=== PATIENT | male | born 1940 | race Caucasian/White ===

== ENCOUNTER 2016-09-08 17:47 | Inpatient (IN) | payer OTHER, MEDICARE ==
[~2016-09-08] VITALS: Ht 172.7 cm; Wt 95.3 kg
[~2016-09-08 17:47] MED LIST: AMLODIPINE BESYL5 M1 PO; BYSTOLIC10 M1 PO; HYDROXYZINE HCL50 M1 PO; LISINOPRIL40 M1 PO; MEDROL4 M2 PO
--- NOTE | 2016-09-08 18:44 | ED DYSPNEA/ASTHMA COMPLAINT ---
History of Present Illness General Chief Complaint: Dyspnea (COPD, CHF, Other) Stated Complaint: SOB Source: patient, family Exam Limitations: no limitations Vital Signs & Intake/Output Vital Signs & Intake/Output Vital Signs Date Time Temp Pulse Resp B/P Pulse O2 O2 Flow FiO2 Ox Delivery Rate 09/08 2344 97.8 87 20 162/90 93 Room Air 09/08 2244 97.4 70 22 144/70 91 Room Air 09/08 2020 98.2 63 20 140/67 91 Room Air 09/08 2011 93 09/08 1909 91 09/08 1902 Room Air Room Air 09/08 1809 98.2 70 20 165/89 93 Room Air ED Intake and Output 09/09 0000 09/08 1200 Intake Total Output Total Balance Patient 220 lb Weight Allergies Coded Allergies: No Known Drug Allergies (UNKNOWN 04/08/16) Triage Note: RECEIVED 75 YO MALE C/O SHORTNESS OF BREATH AND WHEEZING X 2 WEEKS. FAINT EXP WHEEZES ALL WRAY. PT REPORTS CHEST TIGHTNESS AND RIGHT SIDED CHEST SORENESS. Triage Nurses Notes Reviewed? yes HPI: Patient is a 75-year-old male presents complaining of cough, wheezing, dyspnea. Symptoms 2 weeks. Cough with yellow sputum production. Reports right-sided chest pain and rib pain for approximately one week. Pain is sharp pain worsens with deep breath and coughing. Pain is currently moderate. Patient denies fevers, chills. (MATTHEW PALMA,ADRIANA) Reconcile Medications Amlodipine Besylate 5 MG TABLET 1 TAB PO DAILY HTN (Reported) Atorvastatin Calcium 10 MG TABLET 1 TAB PO DAILY CHOLESTEROL (Reported) Lisinopril 40 MG TABLET 1 TAB PO DAILY HTN (Reported) Nebivolol HCl (Bystolic) 10 MG TABLET 0.5 TAB PO DAILY HTN (Reported) (LEAH VASQUES,ZE [place]) Past History Travel History Traveled to [place] past 21 day No Medical History Any Pertinent Medical History? see below for history Neurological: NONE EENT: NONE Cardiovascular: hypertension, hyperlipidemia Respiratory: NONE Gastrointestinal: NONE Hepatic: NONE Renal: NONE Musculoskeletal: spinal stenosis Psychiatric: NONE Endocrine: NONE Blood Disorders: NONE Cancer(s): BLADDER CA History of MRSA: No History of VRE: No History of CDIFF: No Surgical History Surgical History: non-contributory Psychosocial History Who do you live with Family Services at Home None, NONE What is your primary language Croatian Tobacco Use: Quit >30 days ago Family History Family History, If Any: FATHER FH: leukemia MOTHER FH: diabetes mellitus Hx Contributory? No (ADRIANA PAYNE) Review of Systems Review of Systems Constitutional: Denies: chills, fever. EENTM: Reports: no symptoms. Respiratory: Reports: see HPI. Cardiovascular: Reports: chest pain (RIGHT-SIDED). Denies: orthopena, syncope. GI: Denies: abdominal pain, nausea, vomiting. Genitourinary: Reports: no symptoms. Musculoskeletal: Reports: no symptoms. Skin: Reports: no symptoms. Neurological/Psychological: Reports: no symptoms. Hematologic/Endocrine: Reports: no symptoms. Immunologic/Allergic: Reports: no symptoms. (ADRIANA PAYNE) Physical Exam Physical Exam General Appearance: well developed/nourished, alert, awake, obese Head: atraumatic, normal appearance Eyes: Bilateral: normal appearance, PERRL, EOMI. Ears, Nose, Throat: normal pharynx, normal ENT inspection, hearing grossly normal Neck: normal inspection, supple, full range of motion Respiratory: chest non-tender, no respiratory distress, MILD DIFFUSE EXPIRATORY WHEEZING. Diminished lung sound right lower lobe Cardiovascular: regular rate/rhythm (NO APPRECIABLE MURMUR) Gastrointestinal: soft, non-tender Extremities: 1+ BILATERAL LOWER EXTREMITY EDEMA Neurologic/Psych: no motor/sensory deficits, awake, alert, oriented x 3, normal gait, normal mood/affect Skin: intact, normal color, warm/dry Lymphatic: no anterior cervical dara Core Measures ACS in differential dx? Yes ASA ordered for poss ACS? No-ACS ruled out Severe Sepsis Present: No Septic Shock Present: No (ADRIANA PAYNE) Progress Differential Diagnosis: asthma, AMI, bronchitis, CHF, COPD, pulmonary embolism, pneumonia, unstable angina Plan of Care: Orders Procedure Date/time Status Heart Healthy Diet 09/09 B Active CBC WITHOUT DIFFERENTIAL 09/09 06 Active BASIC ELECTROLYTES PLUS BUN&CR 09/09 06 Active Pathway - chart 09/08 2351 Active Code Status 09/08 2351 Active Patient Data 09/08 2158 Active Intake & Output 09/08 2139 Active Saline Lock 09/08 2113 Active Misc Message 09/08 2113 Active ED Holding Orders 09/08 2113 Active Vital Signs 09/08 2113 Active Code Status 09/08 2113 Complete Admit to inpatient 09/08 2112 Active Add-on Test (ER Only) 09/08 2056 Active B-TYPE NATRIURETIC PEP (BNP) 09/08 190 Complete TROPONIN LEVEL 09/08 1839 Complete COMPREHENSIVE METABOLIC PANEL 09/08 1839 Complete CBC WITHOUT DIFFERENTIAL 09/08 1839 Complete EKG 09/08 1811 Active US-DUPLEX VENOUS EXTREM UNI 09/08 UNK Active TRC EVALUATION (GEN) 09/08 UNK Active House Staff 09/08 UNK Active VTE Mechanical Prophylaxis 09/08 UNK Active Vital Signs 09/08 UNK Active Current Medications Sig/Jordon Start time Last Medication Dose Stop Time Status Admin Amlodipine Besylate 5 MG DAILY 09/09 1000 AC (Norvasc) Atorvastatin Calcium 10 MG DAILY 09/09 1000 AC (Lipitor) Nebivolol 5 MG DAILY 09/09 1000 AC (Bystolic) Prednisone 40 MG DAILY 09/09 1000 AC Heparin Sodium 5,000 UNIT Q8 09/08 2346 AC (Porcine) Acetaminophen 650 MG Q6P PRN 09/08 2345 AC (Tylenol) Morphine Sulfate 2 MG Q4P PRN 09/08 2345 AC (Morphine) Oxycodone HCl 5 MG Q6P PRN 09/08 2345 AC (Roxicodone) Sodium Chloride 1,000 ML ONCE ONE 09/08 2345 AC (Normal Saline 0.9%) 09/09 1304 Laboratory Tests 09/08/161901: Anion Gap 11, Estimated GFR 54 L, BUN/Creatinine Ratio 15.4, Glucose 90, Calcium 9.9, Total Bilirubin 0.7, AST 26, ALT 33, Alkaline Phosphatase 106, Troponin I 0.04, Qtj-I-Cbxsushuxcv Pept 1250 H, Total Protein 7.3, Albumin 4.1, Globulin 3.2, Albumin/Globulin Ratio 1.3, CBC w Diff NO MAN DIFF REQ, RBC 6.08, MCV 85.5, MCH 27.7, RDW 14.6 H, MPV 8.8, Gran % 73.9, Lymphocytes % 15.0 L, Monocytes % 8.0, Eosinophils % 2.6, Basophils % 0.5, Absolute Granulocytes 7.4 H, Absolute Lymphocytes 1.5, Absolute Monocytes 0.8 H, Absolute Eosinophils 0.3 , Absolute Basophils 0.1, PUBS MCHC 32.4 L 1939: Improved air movement and moderate improvement in wheezing. Continues with diminished lung sounds right lower lobe. Results of labs and chest x-ray discussed with patient and his . CT scan ordered 2129: Results of CT scan discussed with patient and his . Patient's oxygen saturation 89-90% on room air at rest while I was re-evaluating patient. Discussed with Dr. Meade. 2134: Patient ambulated by nursing staff, became tachypnic and dyspneic. Plan for admission. 2144: Discussed with Dr. Jefferson: will admit patient. (MATTHEW PALMA,ADRIANA) Diagnostic Imaging: Viewed by Me: Radiology Read. Discussed w/RAD: Radiology Read. CXR Impression: PATIENT: TRISH FANG PRESENT AGE: 75 PATIENT ACCOUNT NO: [id number] : 38 LOCATION: [facility] ORDERING PHYSICIAN: ADRIANA PALMA SERVICE DATE: 09/08/16 EXAM TYPE: RAD - XRY-CHEST XRAY, PA AND LATERAL EXAMINATION: XR CHEST CLINICAL INFORMATION: Cough and sputum production. Right-sided rib pain. COMPARISON: CT abdomen and pelvis 10/09/2013. Chest x-ray 04/16/2013. TECHNIQUE: 2 views of the chest were obtained. FINDINGS: PA and lateral views of the chest demonstrate right basilar opacification with associated right-sided volume loss and elevation of the right hemidiaphragm. This finding may be secondary to underlying right lower lobe collapse secondary to an endobronchial or extrabronchial obstructing lesion. The left lung is hypoinflated but otherwise clear. No pleural effusions or pneumothoraces. Cardiac mediastinal contours are partially obscured. IMPRESSION: Right basilar opacification with associated right lung volume loss and elevation of the right hemidiaphragm. This finding is indeterminate but could reflect right lower lobe collapse secondary to an endobronchial or extrabronchial obstructing lesion. Recommend correlation with contrast-enhanced chest CT. DICTATED BY: PAUL YODER MD DATE/TIME DICTATED:09/08/161911 TELETYPE INSTALLER:MARCE DATE/TIME TRANSCRIBED:09/08/161911 CONFIDENTIAL, DO NOT COPY WITHOUT APPROPRIATE AUTHORIZATION. <Electronically signed in Other Vendor System> SIGNED BY: PAUL YODER MD 09/08/161941 Initial ED EKG: sinus rhythm 61 bpm incomplete right bundle branch block, poor baseline, no obvious acute ST/T-wave changes compared to previous EKG Prior EKG: unchanged (ADRIANA PAYNE) Departure Departure Time of Disposition: 2136 Disposition: HOME OR SELF CARE Condition: Stable Clinical Impression Primary Impression: Pleural effusion Referrals: YUMIKO TAYLOR DO (PCP/Family) Departure Forms: Customer Survey General Discharge Information Admission Note Spoke With: KERI VASQUES,FRANCISCO J Documentation of Exam: Documentation of any treatments & extenuating circumstances including Concerns Regarding Discharge (functional status, medication knowledge or non-compliance, living conditions, etc.) that warrant an admission rather than observation: supplemental oxygen, pulmonary consultation, IR thoracentesis and send pleural fluid for analysis to help determine etiology. Patient's oxygen saturation has dropped to 89% on room air at rest, patient has tachypnea and dyspnea with exertion. Does not appear safe for discharge. (ADRIANA PAYNE) PA/DRUM PLATER Co-Sign Statement Statement: ED Attending supervision documentation- [] I saw and evaluated the patient. I have also reviewed all the pertinent lab results and diagnostic results. I agree with the findings and the plan of care as documented in the PA's/DRUM PLATER's documentation. [X] I have reviewed the ED Record and agree with the PA's/DRUM PLATER's documentation. [] Additions or exceptions (if any) to the PAs/DRUM PLATER's note and plan are summarized below: [] (LEAH VASQUES,ZE [place]) Critical Care Note Critical Care Note Critical Care Time: non-applicable (ADRIANA PAYNE)
[2016-09-08] MEDS ORDERED: ATORVASTATIN CA10 M1 PO (19:04)
[2016-09-08 19:16] LABS: ABSOLUTE BASOPHIL COUNT 0.1 /CUMM (0.0-0.2); ABSOLUTE EOSINOPHIL COUNT 0.3 /CUMM (0.0-0.7); ABSOLUTE GRANULOCYTE CT 7.4 /CUMM (1.4-6.5); ABSOLUTE LYMPH COUNT 1.5 /CUMM (1.2-3.4); ABSOLUTE MONOCYTE COUNT 0.8 /CUMM (0.10-0.60); BASOPHIL % 0.5 % (0.0-2.0); EOSINOPHIL % 2.6 % (0-5); GRANULOCYTE % 73.9 % (42.2-75.2); MEAN CORPUSCULAR HGB 27.7 PG (27.0-31.0); MEAN CORPUSCULAR HGB CONC 32.4 G/DL (33.0-37.0); MEAN CORPUSCULAR VOLUME 85.5 FL (80.0-94.0); MEAN PLATELET VOLUME 8.8 FL (7.4-10.4); PLATELET COUNT 304 /CUMM (130-400); RBC DISTRIBUTION WIDTH 14.6 % (11.5-14.5); RED BLOOD CELL CT 6.08 /CUMM (4.70-6.10)
--- NOTE | 2016-09-08 19:42 | RADIOLOGY REPORT ---
EXAMINATION: XR CHEST CLINICAL INFORMATION: Cough and sputum production. Right-sided rib pain. COMPARISON: CT abdomen and pelvis 10/09/2013. Chest x-ray 04/16/2013. TECHNIQUE: 2 views of the chest were obtained. FINDINGS: PA and lateral views of the chest demonstrate right basilar opacification with associated right-sided volume loss and elevation of the right hemidiaphragm. This finding may be secondary to underlying right lower lobe collapse secondary to an endobronchial or extrabronchial obstructing lesion. The left lung is hypoinflated but otherwise clear. No pleural effusions or pneumothoraces. Cardiac mediastinal contours are partially obscured. IMPRESSION: Right basilar opacification with associated right lung volume loss and elevation of the right hemidiaphragm. This finding is indeterminate but could reflect right lower lobe collapse secondary to an endobronchial or extrabronchial obstructing lesion. Recommend correlation with contrast-enhanced chest CT.
--- NOTE | 2016-09-08 21:25 | CT SCAN REPORT ---
EXAMINATION: CT CHEST WITH CONTRAST CLINICAL INFORMATION: Abnormal findings within the right lung base on recent chest x-ray. COMPARISON: Chest x-ray 09/08/2016. TECHNIQUE: Multidetector volumetric CT imaging of the chest was obtained after the administration of 94 mL of Optiray 320 intravenous contrast without immediate adverse reactions. Axial MIP volume rendering provided. Sagittal and coronal reformatted images were obtained. DLP: 626 mGy-cm. FINDINGS: BRANCH LENDING OFFICER: Shop Repairer views of the chest demonstrate right basilar opacification. LUNGS: Evaluation of the bilateral lungs is notable for right basilar compressive atelectasis secondary to a moderate right-sided pleural effusion. Within the aerated portions of the bilateral lungs, there are no suspicious pulmonary nodules or masses. The central airways are patent, without endobronchial obstructing lesions. MEDIASTINUM: Normal heart size, without significant pericardial effusion. Bovine configuration of the aortic arch, characterized by common origin of the brachiocephalic and left common carotid arteries. No significant mediastinal, hilar or axillary adenopathy. Scattered atherosclerosis of the thoracic aorta and scattered coronary artery calcifications. Normal caliber of the thoracic aorta and main pulmonary artery. No large central pulmonary emboli. PLEURA: Bilateral pleural effusions. Specifically, there is a moderate layering right-sided pleural effusion with overlying right basilar compressive atelectasis. There is a small left-sided pleural effusion. No pneumothoraces are identified. AXILLA: No significant axillary adenopathy. UPPER ABDOMEN: Partially visualized simple perihepatic ascites. Suspected parapelvic cysts within the right kidney. Mildly prominent lymph nodes within the tala hepatis visualized measuring up to 1.2 cm in short axis dimension within the portacaval region. OSSEOUS STRUCTURES: No acute osseous abnormality. Normal alignment of the imaged thoracolumbar spine. IMPRESSION: 1. A moderate layering right-sided pleural effusion with overlying right basilar compressive atelectasis, accounting for the recently noted abnormalities within the right lung base on a similarly dated chest x-ray. No appreciable heterogeneity of the atelectatic lung parenchyma to suggest infection. No visible endobronchial or extrabronchial obstructing lesions. No suspicious pulmonary masses within the aerated portions of the bilateral lungs. However, please note that evaluation for underlying parenchymal and pleural lesions within the bilateral lung bases is limited given bilateral pleural effusions. 2. Small left-sided pleural effusion. 3. Partially visualized small volume perihepatic ascites. Suspected parapelvic cysts within the right kidney.
--- NOTE | 2016-09-08 22:59 | History & Physical ---
BARBARA MIRANDA MDAVI 09/08/16 2118: General Information and HPI MD Statement: I have seen and personally examined TRISH FANG and documented this H&P. The patient is a 75 year old M who presented with a patient stated chief complaint of [wheezing, shortness of breath]. 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 He also reprots cough with yellowgreen sputum production for the past few days. He also reports right sided chest soreness. He had some weight loss during the past few months, anorexic. He also reports a recurrence of bladder cancer few months ago requiring intravesicular mitomycin treatment, last session 2mon ago. He denies any fever, chills, sick contacts, recent travel, nausea, vomiting, burning urination/hematuria recently. Allergies/Medications Allergies: Coded Allergies: No Known Drug Allergies (UNKNOWN 04/08/16) Home Med list Amlodipine Besylate 5 MG TABLET 1 TAB PO DAILY HTN (Reported) Atorvastatin Calcium 10 MG TABLET 1 TAB PO DAILY CHOLESTEROL (Reported) Lisinopril 40 MG TABLET 1 TAB PO DAILY HTN (Reported) Nebivolol HCl (Bystolic) 10 MG TABLET 0.5 TAB PO DAILY HTN (Reported) Compliance With Home Meds: GOOD Past History Travel History Traveled to [place] past 21 day No Medical History Neurological: NONE EENT: NONE Cardiovascular: hypertension, hyperlipidemia Respiratory: NONE Gastrointestinal: NONE Hepatic: NONE Renal: NONE Musculoskeletal: spinal stenosis Psychiatric: NONE Endocrine: NONE Blood Disorders: NONE Cancer(s): BLADDER CA, schwannoma History of MRSA: No History of VRE: No History of CDIFF: No Surgical History Surgical History: Schwannoma removal - surgery twice Past Family/Social History Family History Relations & Conditions if any FATHER FH: leukemia MOTHER FH: diabetes mellitus Relation not specified for: FH: heart disease Psychosocial History Where do you live? Home Who Do You Live With? spouse Services at Home: None, NONE Smoking Status: Former Smoker ETOH Use: denies use Illicit Drug Use: denies illicit drug use Functional Ability ADLs Independent: dressing, eating, toileting, bathing. Ambulation: independent IADLs Independent: shopping, housework, finances, food prep, telephone, transportation , medication admin. 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 Denies: chills, fever. EENTM: Reports: see HPI, visual changes, hearing changes. Cardiovascular: Reports: see HPI, chest pain, peripheral edema. Respiratory: Reports: see HPI. Exam & Diagnostic Data Last 24 Hrs of Vital Signs/I&O Vital Signs Date Time Temp Pulse Resp B/P Pulse O2 O2 Flow FiO2 Ox Delivery Rate 09/08 2344 97.8 87 20 162/90 93 Room Air 09/08 2244 97.4 70 22 144/70 91 Room Air 09/08 2020 98.2 63 20 140/67 91 Room Air 09/08 2011 93 09/08 1909 91 09/08 190 Room Air Room Air 09/08 1809 98.2 70 20 165/89 93 Room Air Intake & Output 09/09 0800 09/09 0000 09/08 1600 Intake Total Output Total Balance Patient 99.79 kg Weight Physical Exam General Appearance Alert, Oriented X3, Cooperative, No Acute Distress Skin No Rashes, No Breakdown HEENT Atraumatic, PERRLA, EOMI, drooping present on right side, after a surgery. 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 ER Vital Signs Temp 98.2, pulse of 70, BP 140/67mmHg, on room air Significant labs include Potassium of 5.2, Cr 1.3 white count of 10, H&H of 16/52 with platelet of [address] IMPRESSION: 1. A moderate layering right-sided pleural effusion with overlying right basilar compressive atelectasis, accounting for the recently noted abnormalities within the right lung base on a similarly dated chest x-ray. No appreciable heterogeneity of the atelectatic lung parenchyma to suggest infection. No visible endobronchial or extrabronchial obstructing lesions. No suspicious pulmonary masses within the aerated portions of the bilateral lungs. However, please note that evaluation for underlying parenchymal and pleural lesions within the bilateral lung bases is limited given bilateral pleural effusions. 2. Small left-sided pleural effusion. 3. Partially visualized small volume perihepatic ascites. Suspected parapelvic cysts within the right kidney. Plan Right sided pleural effusion * Secondary to acute bronchitis vs metastatic carcinoma * F/U cultures (sputum, blood, urine). * Started on Azithromycin IV X 5days, prednisone oral for bronchitis. * Diagnostic and therapeutic thoracocentesis tomorrow morning keeping NPO tonight. * TRC/Nebs Right sided pedal edema * Has been chronic from few years after an ankle injury * Doppler ultrasound requested to rule out DVT History of hypertension * Continue his home medications including Amlodipine 5mg, Lisinopril 40mg, Bystolic 10mg. History of hyperlipidemia * On atorvastatin 10mg at home, we will continue that Chronic kidney disease * Creatinine 1.3 (baseline) with potassium of 5.2 * Underwent CT with IV contrast today * Fluids to prevent prerenal injury, holding lisinopril * Monitor with BEP daily History of bladder cancer * Patient is undergoing intravesicular chemotherapy with mitomycin * Last session was 2 months ago for recurrence (mitomycin) and he was informed that he was free from cancer * Follows History of shwannoma with residual defects S/P surgery * Patient underwent surgery twice as it was a large tumor * Residual deficits evident with right sided facial droop, right ear deafness, right vision problems * Currently stable DVT prophylaxis * SC heparin Code Status * Full Code As Ranked By This Provider Problem List: 1. Abdominal pain 2. DVT prophylaxis 3. Bladder cancer 4. Hypertension 5. Hyperlipidemia 6. Pleural effusion Core Measures/Miscellaneous Acute Coronary Syndrome ACS Diagnosis: No Cerebrovascular Accident CVA/TIA Diagnosis: No Congestive Heart Failure CHF Diagnosis: No Venous Thromboembolism VTE Risk Factors: Cancer/chemo/oth therapy VTE Prophylaxis Ordered Inpt: Pharm- Heparin No Mech VTE prophylaxis d/t: No contraindications No VTE Pharm Prophylaxis d/t: No contraindications VTE Diagnosis: No VTE Type: NONE VTE Confirmed by (Test): NONE Severe Sepsis Severe Sepsis Present: No Septic Shock Septic Shock Present: No Miscellaneous Documentation Attending Case Discussed With: FRANCISCO J SAAVEDRA MD Primary Care Physician: YUMIKO TAYLOR DO Patient sees these Specialists , Level of Patient Care: General Medicine BERNIE MARTÍNEZ MD 09/08/16 0057: Resident Review Statement Resident Statement: examined this patient, discussed with undergraduate internship, agreed with undergraduate internship, reviewed EMR data (avail), reviewed images, amended to note Other Findings: This is 75-year-old male with past medical history of hypertension, HLD, stage III CKD, nephrolithiasis, bladder tumor status post resection and intravesical chemotherapy treatment currently in remission for past 2 months, remote history of brain tumor (schwannoma) status post surgical removal with residual right- sided facial droop and right eyelid droop presented to ED with chief complaint of 2 weeks history of progressively worsening shortness of breath associated with productive greenish yellowish sputum and wheezing. He denies any sick contacts, recent travel, nausea, vomiting, abdominal pain, chest pain or urinary symptoms. Vitals on admission were T 98.2, HR 70, RR 20, BP 165/89, O2 sat 93% on room air which dropped to 89% on ambulation. On physical exam patient is alert oriented 3 in no acute distress, HEENT PERRLA EOMI, neck supple noted will right eyelid droop and right-sided facial droop, heart S1-S2 normal with grade 3 systolic murmur, lungs clear on auscultation with poor air entry in right basis with dullness on percussion, abdomen distended soft nontender with preserved bowel sounds, noted significant 2+ pitting pedal edema of right lower extremity, no focal gross neuro deficit. Labs revealed WBC of 10,000, H&H 16.8/52, sodium 146, K5.2, BUN 20, creatinine 1.3 (baseline creatinine 1.3), normal LFT, so 0.04, BNP 1250 , CT chest with IV contrast revealed moderate right-sided pleural effusion with overlying right basilar compressive atelectasis, small left pleural effusion and partially visualized small in volume perihepatic ascites and also in noted suspected parapelvic cyst within the right kidney. EKG revealed normal sinus rhythm at rate of 61, left axis, nonspecific ST elevation in lead V2, QTC 431 Assessment:: This is 75-year-old male with past medical history of hypertension, HLD, stage III C daily, nephrolithiasis, bladder tumor status post resection and intravesical chemotherapy, brain tumor presented with 2 weeks history of progressively worsening shortness of breath associated with productive cough and wheezing likely have acute bronchitis/ COPD exacerbation. 1. Acute bronchitis with component of COPD exacerbation - Admit to general medicine floor - Send sputum for culture and urine for strep and legionella antigen - Continue rapid steroid taper - Start IV azithromycin - TRC - Bilateral lower extremity Doppler in a.m. to rule out DVT - If high suspicion of PE consider CTA chest in a.m. 2. Moderate right-sided pleural effusion - ? Malignant considering the history of recurrent bladder cancer - Consider right thoracentesis - Please keep patient off anticoagulation for possible plying IR guided thoracentesis - Pulmonary consult in am 2. Hypertension Continue home dose antihypertensive medication including nabumetone old, lisinopril and amlodipine 3. Hyperlipidemia Continue statin 4. Stage III Ckd - Patient received IV contrast in ER - Avoid nephrotoxic agent - held lisinopril as patient received iv contrast for CT scan, if kidney function stable resume it - Recheck renal function in a.m. 5. Right lower extremity swelling - Rule out DVT with lower extremity Doppler in a.m. 6. History of bladder cancer status post resection and intravesical chemotherapy - As per patient currently in remission - outpt urology follow with Dr. Aguayo 6. DVT prophylaxis Mechanical due to possible thoracentesis 7. Full code KERI VASQUES, [facility] 09/09/16 0518: Attending MD Review Statement Attending Statement Attending MD Statement: examined this patient, discuss w/resident/PA/PRODUCTION ASSEMBLY OPERATOR, agreed w/resident/PA/PRODUCTION ASSEMBLY OPERATOR Attending Assessment/Plan: [id number] yo M with h/o bladder cancer s/p resection in 2011 with recurrence requiring TURBT and chemo (2015), HTN, BPH, nephrolithiasis, CKD stage 3A, schwannoma s/p resection (1990) with residual facial droop, pw 2-week h/o exertional dyspnea, wheezing and cough productive of yellow phlegm. No sick contacts, recived flu shot. Pleuritic right sided chest pain+. While in the ER, O2 sats were 89-90% at rest. On ambulation, patient became tachypneic. Vitals stable except for RA sats ~ 91-93%. Exam: AAO, no JVD. Chest reduced right sided air entry, few expiratory wheezes, RLE: 2+ pitting edema compared to LLE (1+ edema). Labs: Na 146, K 5.2, Creat 1.3 (baseline), trop neg, proBNP 1250. EKG: SR, RBBB. CXR: right basilar opacification with volume loss. CT chest : moderate right pleural effusion with right basilar atelectasis. 1. Hypoxia in the setting of right sided pleural effusion of unclear etiology ( pneumonia vs. CHF vs. Lung metastasis). No evidence of florid pulmonary edema. Patient needs IR guided diagnostic and therapeutic thoracentesis in AM. Send fluid for culture, cytology and cell count. Pulm consult in AM. Check INR in AM, prior to procedure. 2. Bronchitis with possible COPD exacerbation. TRC nebs, sputum culture, rapid steroid taper, azithro for 5 days. 3. RLE edema, rule out DVT with dopplers in AM. 4. CKD at baseline. Hold lisinopril in AM, given patient received IV contrast, monitor BUN/creatinine. 5. Continue home meds including amlodipine, statin and bystolic. DVT ppx Alps, initiate SC heparin post thoracentesis. Full code.
[2016-09-08 23:44] VITALS: BP 162/90
--- NOTE | 2016-09-09 04:44 | Admission Certification ---
Admission Certification Certification Statement - As attending physician, I certify that at the time of - admission, based on clinical presentation, severity of - symptoms, need for further diagnostic testing and - therapeutic interventions, and risk of adverse outcomes - without in-hospital treatment, in my clinical assessment, - this patient requires an acute hospital stay for a minimum - of two nights or longer. I have also considered psychsocial - factors such as support system, advanced age, financial - issues, cognitive issues, and failed out-patient treatments, - past re-admission history, safety of patient, and lack of - compliance as applicable. Specific rationale supporting this admission is: Hypoxia, exertional dyspnea, right sided pleural effusion of unclear etiology.
[2016-09-09 06:00] VITALS: BP 146/78
--- NOTE | 2016-09-09 07:29 | PN- Housestaff ---
GIANNIBAKARI 09/09/16 0728: Subjective Follow-up For: - pleural effusion - shortness of breath Subjective: Mr Tapia is comfortable this am. No compalints. He was sitting in his chair when I walked into his room this am. Oxygen saturation was in the range of 95-96 % on RA. Remained afebrile overnight. No shortness of breath, no chest pain, no palpitations. Review of Systems Constitutional: Reports: see HPI. Objective Last 24 Hrs of Vital Signs/I&O Vital Signs Date Time Temp Pulse Resp B/P Pulse O2 O2 Flow FiO2 Ox Delivery Rate 09/09 0600 97.7 67 20 146/78 67 Room Air 09/08 2344 97.8 87 20 162/90 93 Room Air 09/08 2244 97.4 70 22 144/70 91 Room Air 09/08 2021 98.2 63 20 140/67 91 Room Air 09/08 2011 93 09/08 1909 91 09/08 1902 Room Air Room Air 09/08 1809 98.2 70 20 165/89 93 Room Air Intake & Output 09/09 0800 09/09 0000 09/08 1600 Intake Total 130 Output Total 250 Balance -120 Intake, IV 10 Intake, Oral 120 Output, Urine 250 Patient 210 lb Weight Physical Exam General Appearance: No Acute Distress Other Physical Findings: General Exam: AAOx3, No acute distress, Skin: No rashes, no breakdown HEENT: PERRLA, EOMI Neck: Supple, No JVD No cervical lymphadenopathy CVS: Reg Rate, Normal S1,S2, No MGR Resp: Low air entry on right side, no rhonchi or rales. Abdomen: Soft, No tenderness, Normal Bowel Sounds Neuro: Normal Speech, Strength 5/5 b/l x 4 extremities, Sensation intact, Facial droop right side, Reflexes 2+ Extremities: No cyanosis, pedal edema Current Medications: Current Medications Sig/Jordon Start time Last Medication Dose Route Stop Time Status Admin Acetaminophen 650 MG Q6P PRN 09/08 2345 AC PO Albuterol Sulfate 3 ML ONCE ONE 09/08 1999 DC 09/08 INH 09/08 Albuterol Sulfate 3 ML ONCE ONE 09/08 1845 DC 09/08 INH 09/08 184 1909 Amlodipine Besylate 5 MG DAILY 09/09 1000 AC PO Atorvastatin Calcium 10 MG DAILY 09/09 1000 AC PO Azithromycin 500 MG DAILY 09/09 1000 AC Dextrose/Water 250 ML IV Heparin Sodium 5,000 UNIT Q8 09/08 2346 DC 09/09 (Porcine) SC 0016 Ipratropium [place] 2.5 ML ONCE ONE 09/08 1845 DC 09/08 INH 09/08 184 1909 Morphine Sulfate 2 MG Q4P PRN 09/08 2345 AC IV Nebivolol 5 MG DAILY 09/09 1000 AC PO Oxycodone HCl 5 MG Q6P PRN 09/08 2345 AC PO Prednisone 10 MG DAILY 09/12 1000 AC PO 09/12 1001 Prednisone 20 MG DAILY 09/11 1000 AC PO 09/11 1001 Prednisone 30 MG DAILY 09/10 1000 AC PO 09/10 1001 Prednisone 40 MG DAILY 09/09 1000 DC PO Prednisone 40 MG DAILY 09/09 1000 CAN PO 09/13 0959 Prednisone 20 MG DAILY 09/09 1000 DC PO 09/09 1001 Prednisone 40 MG DAILY 09/09 1000 AC PO 09/09 1001 Prednisone 60 MG ONCE ONE 09/08 1844 DC 09/08 PO 09/08 184 1846 Prednisone 0 .STK-MED ONE 09/08 184 DC PO Sodium Chloride 1,000 ML ONCE ONE 09/08 2345 DC 09/09 IV 09/09 1304 0017 Last 24 Hrs of Lab/Bebeto Results Last 24 Hrs of Labs/Mics: Laboratory Tests 09/09/16 0635: Sodium Pending, Potassium Pending, Chloride Pending, Carbon Dioxide Pending, Anion Gap Pending, BUN Pending, Creatinine Pending, BUN/Creatinine Ratio Pending , PT Pending, INR Pending, CBC w Diff Pending, WBC Pending, RBC Pending, Hgb Pending, Hct Pending, MCV Pending, MCH Pending, RDW Pending, Plt Count Pending, MPV Pending, PUBS MCHC Pending 09/09/16 0140: Troponin I 0.03 09/08/161901: Anion Gap 11, Estimated GFR 54 L, BUN/Creatinine Ratio 15.4, Glucose 90, Calcium 9.9, Total Bilirubin 0.7, AST 26, ALT 33, Alkaline Phosphatase 106, Troponin I 0.04, Mtw-D-Ihbxtoyqeuc Pept 1250 H, Total Protein 7.3, Albumin 4.1, Globulin 3.2, Albumin/Globulin Ratio 1.3, CBC w Diff NO MAN DIFF REQ, RBC 6.08, MCV 85.5, MCH 27.7, RDW 14.6 H, MPV 8.8, Gran % 73.9, Lymphocytes % 15.0 L, Monocytes % 8.0, Eosinophils % 2.6, Basophils % 0.5, Absolute Granulocytes 7.4 H, Absolute Lymphocytes 1.5, Absolute Monocytes 0.8 H, Absolute Eosinophils 0.3 , Absolute Basophils 0.1, PUBS MCHC 32.4 L Microbiology 09/09 529 URINE ROUT: Legionella Antigen - RECD 09/09 529 URINE ROUT: Streptococcus pneumoniae Antigen (M - RECD Assessment/Plan Assessment: He is an older man w/ a PMH of bladder cancer(dx'ed 1990) s/p mitomycin Tx, Schwannoma s/p resection w/ residual neuro deficit, vision and deafness is being evalauted for SOB at rest, cough w/ yellow green sputum x 2 wks. At the time of admission, vitals 98.2, MT 70, RR 20, BP 140/67, 91-93% RA; lung exam findings were significant for decreased air entry on right side, Lab findings indicated- WBC 10, HB 16.8, platelets 304, Na 146, K 5.2, HCO3 28, BUN 20, Sr 1.3( baseline 1.4), proBNP 1250(slight elevation, no radiological findings of CHF on cxr). CT chest - Right sided pleural effusion, and a small volume perihepatic ascites was seen. Differenital diagnosis: 1. Malignant pleural effusion 2. Empyema Below is the problem list and plan: 1. SOB- likely from large volume pleural effusion, that is likely causing SOB. Bladder mass is know to metastasize to lung, but nodular lesions are more likely. Infectious cause is onother in differential, which is more likely. Pt currently on Azithromycin for atypical organisms. Diagnositic and therpeutic thoracenteis done. Cytology pending, maligant vs infectious cause. pH 7.29, pl LDH 532 ( pl LDH/sr LDH > 0.6 ), pl pr/sr pr >0.5; Increased fluid cholesterol- all these infavor of exudative effusion. Ordered CT scan chest, as per Dr Mcintosh. Prednisone taper. 2. CKD- Sr. Cr 1.3. Currently stable. Potassium was slightly elevated. Likey hemolysis; kayexalate x1 60ml and recheck potassium at 9 PM. 3. Bladder cancer- as per pt, cystoscopy was negative for any masses. Contact Dr. Wu and notifiy him about the pt's admisison. Problem List: 1. Pleural effusion 2. Acute on chronic renal failure 3. Bladder cancer Pain Ratin Pain Location: none Pain Goal: Pain 4 or less Pain Plan: tylenol prn Tomorrow's Labs & Rationales: bep - check potassium and kidney function ARTHUR HORVATH MD 09/09/16 1710: Attending MD Review Statement Attending Statement Attending MD Statement: examined this patient, discuss w/resident/PA/SAIL CUTTER, agreed w/resident/PA/SAIL CUTTER, reviewed EMR data (avail)
[2016-09-09 07:58] LABS: ABSOLUTE BASOPHIL COUNT 0 /CUMM (0.0-0.2); ABSOLUTE EOSINOPHIL COUNT 0 /CUMM (0.0-0.7); ABSOLUTE GRANULOCYTE CT 6.4 /CUMM (1.4-6.5); ABSOLUTE LYMPH COUNT 0.6 /CUMM (1.2-3.4); ABSOLUTE MONOCYTE COUNT 0.1 /CUMM (0.10-0.60); BASOPHIL % 0 % (0.0-2.0); EOSINOPHIL % 0 % (0-5); HEMATOCRIT 48.7 % (42-52); MEAN CORPUSCULAR HGB 27.8 PG (27.0-31.0); MEAN CORPUSCULAR HGB CONC 32.9 G/DL (33.0-37.0); MEAN CORPUSCULAR VOLUME 84.5 FL (80.0-94.0); MEAN PLATELET VOLUME 9.2 FL (7.4-10.4); PLATELET COUNT 292 /CUMM (130-400); RBC DISTRIBUTION WIDTH 14.3 % (11.5-14.5); RED BLOOD CELL CT 5.77 /CUMM (4.70-6.10); WHITE BLOOD CELL COUNT 7.2 /CUMM (4.8-10.8)
[2016-09-09 08:20] LABS: PT 13.1 SEC (9.4-12.5)
--- NOTE | 2016-09-09 08:39 | ULTRASOUND REPORT ---
EXAMINATION: UNILATERAL TRIPLEX SCANNING OF THE RIGHT LOWER EXTREMITY CLINICAL INFORMATION: Right lower extremity swelling. COMPARISON: None. TECHNIQUE: Color-flow triplex imaging with spectral analysis and compression Doppler were performed on the right lower extremity. FINDINGS: Respiratory variation, normal compression and augmented flow are noted throughout the lower extremity. The visualized common femoral vein, superficial femoral vein, profunda femoral vein, popliteal vein and mid calf peroneal and posterior tibial venous segments show no evidence of deep venous thrombosis. There is no Claire's cyst. IMPRESSION: Normal triplex scan without evidence of deep venous thrombosis involving the right lower extremity. Mildly enlarged right inguinal/femoral lymph nodes which are nonspecific.
[2016-09-09 09:00] LABS: GRANULOCYTE % 90.1 % (42.2-75.2)
--- NOTE | 2016-09-09 09:50 | Cons- Pulmonary ---
MARIA L SHAW 09/09/16 0949: General Information and HPI Consulting Request Date of Consult: 09/09/16 Requested By: Mel Jefferson MD Exam Limitations: no limitations History of Present Illness: Patient is a 75 YO M presented with progressive shortness of breath, wheezing, and chest tightnesss. His symptoms initiated and worsened over the past two weeks. Patient reoprts scarec hacking cough of with few days of sputum production and right-sided, pleuritic,styvmi-oh-tousd chest pain. 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 He denies any fever, chills, sick contacts, recent travel, nausea, vomiting, burning urination/hematuria recently. Initial Vs: While in the ER, O2 sats were 89-90% at rest. On ambulation, patient became tachypneic. Vitals stable except for RA sats ~ 91-93%. 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 EENTM: Reports: see HPI. Cardiovascular: Reports: see HPI. Denies: chest pain, edema, orthopena, palpitations, peripheral edema, syncope. Respiratory: Reports: see HPI, cough, short of breath, wheezing. GI: Reports: abdominal pain, constipation. Genitourinary: Reports: no symptoms. Musculoskeletal: Reports: no symptoms. Skin: Reports: no symptoms. 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 Home Who Do You Live With? spouse Services at Home: None, NONE Smoking Status: Former Smoker ETOH Use: denies use Illicit Drug Use: denies illicit drug use Functional Ability ADLs Independent: dressing, eating, toileting, bathing. Ambulation: independent IADLs Independent: shopping, housework, finances, food prep, telephone, transportation , medication admin. 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 Exam & Diagnostic Data Last 24 Hrs of Vital Signs/I&O Vital Signs Date Time Temp Pulse Resp B/P Pulse O2 O2 Flow FiO2 Ox Delivery Rate 09/09 0600 97.7 67 20 146/78 67 Room Air 09/08 2344 97.8 87 20 162/90 93 Room Air 09/08 2244 97.4 70 22 144/70 91 Room Air 09/08 2021 98.2 63 20 140/67 91 Room Air 09/08 2012 93 09/08 1909 91 09/08 1902 Room Air Room Air 09/08 1809 98.2 70 20 165/89 93 Room Air Intake & Output 09/09 1600 09/09 0800 09/09 0000 Intake Total 130 Output Total 250 Balance -120 Intake, IV 10 Intake, Oral 120 Output, Urine 250 Patient 210 lb Weight Physical Exam General Appearance: no apparent distress, alert, awake, anxious, obese Head: atraumatic Eyes: Left: normal appearance. Bilateral: PERRL, EOMI. Ears, Nose, Throat: normal pharynx, normal ENT inspection, hearing grossly normal Neck: normal inspection, supple Respiratory: chest non-tender, diminished breath sounds on the base of the right lung , scattered ronchi at the base of the right lung Cardiovascular: regular rate/rhythm, edema Peripheral Pulses: 2+ radial (R), 2+ radial (L) Gastrointestinal: normal bowel sounds, soft, non-tender Rectal: deferred Back: normal inspection Extremities: +2 pitting edema Neurologic/Psych: no motor/sensory deficits, awake, alert, oriented x 3 Cranial Nerves: normal hearing Last 48 Hrs of Labs/Bebeto: Laboratory Tests 09/09/16 0635: Anion Gap 12, Estimated GFR 59 L, BUN/Creatinine Ratio 15.8, PT 13.1 H, INR 1.25 H, CBC w Diff NO MAN DIFF REQ, RBC 5.77, MCV 84.5, MCH 27.8, RDW 14.3, MPV 9.2, Gran % 90.1 H, Lymphocytes % 8.6 L, Monocytes % 1.3 L, Eosinophils % 0, Basophils % 0 L, Absolute Granulocytes 6.4, Absolute Lymphocytes 0.6 L, Absolute Monocytes 0.1 L, Absolute Eosinophils 0, Absolute Basophils 0, PUBS MCHC 32.9 L 09/09/16 0140: Lactate Dehydrogenase 457, Troponin I 0.03, Total Protein 6.6, Albumin 3.7 09/08/16 1902: Anion Gap 11, Estimated GFR 54 L, BUN/Creatinine Ratio 15.4, Glucose 90, Calcium 9.9, Total Bilirubin 0.7, AST 26, ALT 33, Alkaline Phosphatase 106, Troponin I 0.04, Ggi-P-Dluqqlivfmd Pept 1250 H, Total Protein 7.3, Albumin 4.1, Globulin 3.2, Albumin/Globulin Ratio 1.3, CBC w Diff NO MAN DIFF REQ, RBC 6.08, MCV 85.5, MCH 27.7, RDW 14.6 H, MPV 8.8, Gran % 73.9, Lymphocytes % 15.0 L, Monocytes % 8.0, Eosinophils % 2.6, Basophils % 0.5, Absolute Granulocytes 7.4 H, Absolute Lymphocytes 1.5, Absolute Monocytes 0.8 H, Absolute Eosinophils 0.3 , Absolute Basophils 0.1, PUBS MCHC 32.4 L Microbiology 09/09 529 URINE ROUT: Legionella Antigen - COMP 09/09 529 URINE ROUT: Streptococcus pneumoniae Antigen (M - COMP Diagnostic Data CXR Results IMPRESSION: Right basilar opacification with associated right lung volume loss and elevation of the right hemidiaphragm. This finding is indeterminate but could reflect right lower lobe collapse secondary to an endobronchial or extrabronchial obstructing lesion. Recommend correlation with contrast-enhanced chest CT. Other Results IMPRESSION: 1. A moderate layering right-sided pleural effusion with overlying right basilar compressive atelectasis, accounting for the recently noted abnormalities within the right lung base on a similarly dated chest x-ray. No appreciable heterogeneity of the atelectatic lung parenchyma to suggest infection. No visible endobronchial or extrabronchial obstructing lesions. No suspicious pulmonary masses within the aerated portions of the bilateral lungs. However, please note that evaluation for underlying parenchymal and pleural lesions within the bilateral lung bases is limited given bilateral pleural effusions. 2. Small left-sided pleural effusion. 3. Partially visualized small volume perihepatic ascites. Suspected parapelvic cysts within the right kidney. Assessment/Plan Impression/Plan: Pertinent Data Labs: Na 146, K 5.2, Creat 1.3 (baseline), trop neg, proBNP 1250. EKG: SR, RBBB. CXR: right basilar opacification with volume loss. CT chest: moderate right pleural effusion with right basilar atelectasis. 1. Hypoxia in the setting of right sided pleural effusion of unclear etiology ( pneumonia vs. CHF vs. Lung metastasis). Patient does not have overt pneumonia or marshall decompensation of congestive heart failure(no pulmonary edema). CT scan showed newly developed right-sided pleural effusion and right lung atelectasis. 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 * Ultrasound-guided thoracocentesis: transudative Vs exudative Vs pseudo- exudative pleural effusion * Check syndrome LDH serum protein and poor diffusion LDH and total protein and cholesterol * Pleural effusion cell counts, pH, and flow cytometry 2. Bronchitis with possible COPD exacerbation. * TRC nebs, sputum culture, rapid steroid taper, azithro for 5 days. 3. RLE edema- negative DVT 4. CKD- Baseline List of Problems 1) New onset left-sided pleural effusion: transudative (CHF and renal and hepatic causes) Vs Exudative ( primary vs OLIVARES pleural and or pulmonary cancer). Problem List: 1. Pleural effusion 2. Hyperlipidemia 3. Hypertension 4. DVT prophylaxis Consult Acknowledgment - Thank you for your consult request. ARIE OVALLE MD 09/09/16 1138: Assessment/Plan Other Findings/Comments: Arie Mathew M.D. have examined this patient, reviewed available EMR data, personally reviewed images, discussed with resident/PA/SPANISH SPEAKING BABYSITTER, discussed management plan with housestaff and nursing staff, discussed managment plan all of healthcare providers, discussed management plan with patient and/or family, agreed with resident/PA/SPANISH SPEAKING BABYSITTER. The past history and parts of the chart have been autopopulated. Impression 75-year-old man with a history of bladder cancer now with a right-sided pleural effusion of unclear etiology. Plan -Diagnostic and therapeutic thoracentesis -Send for pH, cytology, microbiology, LDH, total protein, cholesterol, cell count -We will offer further recommendations after thoracentesis completed -DVT prophylaxis at all times Consult Acknowledgment - Thank you for your consult request.
--- NOTE | 2016-09-09 12:35 | RADIOLOGY REPORT ---
EXAMINATION:\H\ \N\XR CHEST CLINICAL INFORMATION: Status post right-sided thoracentesis. COMPARISON: 09/08/2016. TECHNIQUE: AP semierect view of the chest was obtained. FINDINGS: There is been a decrease in size of the previously identified right-sided pleural effusion. There is no evidence of underlying pneumothorax. Left lung remains clear. Cardiomediastinal silhouette unchanged. IMPRESSION: Decreased right pleural effusion, no pneumothorax.
--- NOTE | 2016-09-09 13:04 | ULTRASOUND REPORT ---
CLINICAL HISTORY: This patient is a 75-year-old man with moderate right pleural effusion. The patient is referred to interventional radiology for ultrasound-guided thoracentesis. PROCEDURE: Ultrasound-guided thoracentesis. COMPARISON: CT 09/08/2016 ACCESS: 6 Fr Vgyc-O-Mpmgmmru closed needle/catheter system. PROCEDURALIST: Dr. Annabelle Wright. MEDICATIONS: 10 mL of 1% lidocaine SQ. COMPLICATIONS: None. ESTIMATED BLOOD LOSS: <5 mL. SPECIMENS: A specimen was appropriately labeled and sent to the laboratory as requested. PROCEDURE NOTE: Appropriate pre-procedure medical history and imaging studies were reviewed. Informed consent was obtained from the patient prior to the procedure. During this process, the procedure and potential alternatives were explained along with the intended outcome and benefits. The risks of the procedure, including the possibility of an unsuccessful procedure, as well as the risk of not doing the procedure, were discussed. The patient was given the opportunity to ask questions regarding the procedure and appeared competent to make decisions. A signed consent form documenting this discussion was placed in the medical record. SITE MARKING: As part of the preprocedure verification policy, a site marking procedure was initiated. Due to the nature the procedure, the insertion site could not be predetermined thus invoking the policy of exemption to site laterality and marking. Insertion site marking was performed in the procedure room in conjunction with imaging confirmation. A time-out procedure was performed. The patient was brought to the ultrasound department and placed in the seated position. Ultrasound images of the right thorax were obtained to localize a moderate pleural effusion. Images were permanently saved to the record. An area of the patient's right back was prepped and draped in the standard sterile fashion. 10 mL of 1% lidocaine was used to obtain local anesthesia of the skin and deeper tissues. A standard small-bore needle was introduced to sample fluid and demonstrated a safe access route. There was no evidence of traversing adjacent organs or vascular structures. A 6 Fr Fnwh-U-Fnddbnsv closed needle/catheter system was utilized for access. 1060 mL of slightly turbid dark yellow fluid was aspirated before drainage ceased. The catheter was removed and a sterile dressing applied. The patient tolerated the procedure well without evidence of immediate complications. FINDINGS: Moderate simple left pleural effusion. IMPRESSION: Successful left ultrasound-guided therapeutic and diagnostic thoracentesis. PLAN: 1. A postprocedure chest x-ray was ordered and will be dictated separately. 2. The patient was stable after the procedure and transferred to their room with instructions after standard monitoring.
[2016-09-09 13:51] VITALS: BP 150/80
[2016-09-09 22:55] VITALS: BP 138/78
--- NOTE | 2016-09-10 05:52 | PN- Housestaff ---
BAKARI ARCHER 09/10/16 0551: Subjective Follow-up For: 1. shortness of breath Subjective: Mr Tapia was comfortable, w/ no complaints. Remained afebrile, and BP was stable. Spoke to the pathologist- the laboratory couldnt give the absolute WBC count, as the fluid was turbid and ended up clotting. Review of Systems Constitutional: Reports: see HPI. Objective Last 24 Hrs of Vital Signs/I&O Vital Signs Date Time Temp Pulse Resp B/P Pulse O2 O2 Flow FiO2 Ox Delivery Rate 09/09 2255 97.8 73 20 138/78 97 Room Air 09/09 2000 95 Room Air Room Air 09/09 1359 Room Air Room Air 09/09 1351 97.6 76 20 150/80 93 09/09 1118 67 146/78 09/09 0600 97.7 67 20 146/78 67 Room Air Intake & Output 09/10 0800 09/10 0000 09/09 1600 Intake Total 750 Output Total Balance 750 Intake, IV 250 Intake, Oral 500 Physical Exam General Appearance: No Acute Distress Other Physical Findings: General Exam: AAOx3, No acute distress, Skin: No rashes, no breakdown HEENT: PERRLA, EOMI Neck: Supple, No JVD No cervical lymphadenopathy CVS: Reg Rate, Normal S1,S2, No MGR Resp: Normal air entry, no ronchi/rales Abdomen: Soft, No tenderness, Normal Bowel Sounds Neuro: Normal Speech, Strength 5/5 b/l x 4 extremities, Sensation intact, CN III -XII NL, Reflexes 2+ Extremities: No cyanosis, pedal edema Current Medications: Current Medications Sig/Jordon Start time Last Medication Dose Route Stop Time Status Admin Acetaminophen 650 MG Q6P PRN 09/08 2345 AC PO Albuterol Sulfate 3 ML Q4P PRN 09/09 1400 AC 09/09 INH 1355 Amlodipine Besylate 5 MG DAILY 09/09 1000 AC 09/09 PO 1113 Atorvastatin Calcium 10 MG DAILY 09/09 1000 AC 09/09 PO 1113 Azithromycin 500 MG DAILY 09/09 1000 AC 09/09 Dextrose/Water 250 ML IV 1455 Morphine Sulfate 2 MG Q4P PRN 09/08 2345 AC IV Nebivolol 5 MG DAILY 09/09 1000 AC 09/09 PO 1118 Oxycodone HCl 5 MG Q6P PRN 09/08 2345 AC PO Patient Medication 1 ED .STK-MED ONE 09/09 1403 DC Teaching ED 09/09 1404 Prednisone 10 MG DAILY 09/12 1000 AC PO 09/12 1001 Prednisone 20 MG DAILY 09/11 1000 AC PO 09/11 1001 Prednisone 30 MG DAILY 09/10 1000 AC PO 09/10 1001 Prednisone 20 MG DAILY 09/09 1000 DC PO 09/09 1001 Prednisone 40 MG DAILY 09/09 1000 DC 09/09 PO 09/09 1001 1119 Sodium Polystyrene 60 ML ONCE ONE 09/09 1645 DC 09/09 Sulfonate PO 09/09 1646 1815 Last 24 Hrs of Lab/Bebeto Results Last 24 Hrs of Labs/Mics: Laboratory Tests 09/09/16 2113: 09/09/16 1145: Pleural pH 7.29 09/09/16 1145: Fld Mesothelial Cells 09/09/16 1145: Lymphocytes 17, % Normal PMNs 5, Phlebotomy Draw Site RT THORACENTESIS, Fluid Total Protein 4.5, Fluid Albumin 2.7, Fluid LDH 532, Fluid Cholesterol 62 09/09/16 1000: Fluid Cholesterol Cancelled 09/09/16 0635: Anion Gap 12, Estimated GFR 59 L, BUN/Creatinine Ratio 15.8, PT 13.1 H, INR 1.25 H, CBC w Diff NO MAN DIFF REQ, RBC 5.77, MCV 84.5, MCH 27.8, RDW 14.3, MPV 9.2, Gran % 90.1 H, Lymphocytes % 8.6 L, Monocytes % 1.3 L, Eosinophils % 0, Basophils % 0 L, Absolute Granulocytes 6.4, Absolute Lymphocytes 0.6 L, Absolute Monocytes 0.1 L, Absolute Eosinophils 0, Absolute Basophils 0, PUBS MCHC 32.9 L Microbiology 09/09 1145 BODY FLUID: Body Fluid Culture - RECD 09/09 114 BODY FLUID: Gram Stain - RECD 09/09 913 LOWER RESP: Respiratory Culture - COLB 09/09 913 LOWER RESP: Gram Stain - COLB Assessment/Plan Assessment: He is an older man w/ a PMH of bladder cancer(dx'ed 1990) s/p mitomycin Tx, Schwannoma s/p resection w/ residual neuro deficit, vision and deafness is being evalauted for SOB at rest, cough w/ yellow green sputum x [address] chest - Right sided pleural effusion, and a small volume perihepatic ascites was seen. Differenital diagnosis: 1. Malignant pleural effusion Below is the problem list and plan: 1. SOB- likely from large volume pleural effusion, that is likely causing SOB. Malignancy is high on the differential. Await cytology results. Pt currently on Azithromycin for atypical organisms. Plan to continue for 5 days in total. Diagnositic and therpeutic thoracenteis done. Cytology pending, maligant vs infectious cause. pH 7.29, pl LDH 532 ( pl LDH/sr LDH > 0.6 ), pl pr/sr pr >0.5; Increased fluid cholesterol- all these infavor of exudative effusion. Repeat CT chest revealed decrease in pleural effusion. Prednisone taper. 2. CKD- Sr. Cr 1.3. Currently stable. K 5.0. 3. Bladder cancer- as per pt, cystoscopy was negative for any masses. Contacted Dr. Wu and notifiy him about the pt's admisison. Problem List: 1. Pleural effusion 2. Acute on chronic renal failure Pain Ratin Pain Location: none Pain Goal: Pain 4 or less Pain Plan: tylenol prn Tomorrow's Labs & Rationales: no labs necessary ARTHUR HORVATH MD 09/10/16 1126: Attending MD Review Statement Attending Statement Attending MD Statement: examined this patient, discuss w/resident/PA/SIDING INSTALLER, agreed w/resident/PA/SIDING INSTALLER, reviewed EMR data (avail) Attending Assessment/Plan: 75M PMH HTN, HLD, bladder cancer s/p TUBT and mitomycin 2 months ago presenting with shortness of breath and dyspnea on exertion found to have large pleural effusion s/p thoracentesis on 09/09/16. Tolerated procedure well, 1L was removed of turbid fluid which is exudative, feels much better after procedure and is breathing much easier. WBC 17 today, no fever, patient feels well. 1. Large right pleural effusion 2. S/p thoracentesis 3. Shortness of breath 4. Dyspnea on exertion 5. Bladder cancer 6. Leukocytosis (neutrophilia) Plan - Repeat CT chest - Follow up thoracentesis gram stain, culture, and pathology - Follow pulmonary recommendations - Continue home medications - DVT PPx - On discharge will require follow up with pulmonary and urology
[2016-09-10 06:58] VITALS: BP 150/82
--- NOTE | 2016-09-10 07:39 | PN- Student ---
Subjective Subjective: Subjective: Source: Patient Follow-up for: Shortness of Breath Objective Objective: Current Medications Sig/Jordon Start time Last Medication Dose Route Stop Time Status Admin Acetaminophen 650 MG Q6P PRN 09/08 2345 AC PO Albuterol Sulfate 3 ML Q4P PRN 09/09 1400 AC 09/09 INH 1355 Amlodipine Besylate 5 MG DAILY 09/09 1000 AC 09/09 PO 1113 Atorvastatin Calcium 10 MG DAILY 09/09 1000 AC 09/09 PO 1113 Azithromycin 500 MG DAILY 09/09 1000 AC 09/09 Dextrose/Water 250 ML IV 1455 Morphine Sulfate 2 MG Q4P PRN 09/08 2345 AC IV Nebivolol 5 MG DAILY 09/09 1000 AC 09/09 PO 1118 Oxycodone HCl 5 MG Q6P PRN 09/08 2345 AC PO Patient Medication 1 ED .STK-MED ONE 09/09 1403 DC Teaching ED 09/09 1404 Prednisone 10 MG DAILY 09/12 1000 AC PO 09/12 1001 Prednisone 20 MG DAILY 09/11 1000 AC PO 09/11 1001 Prednisone 30 MG DAILY 09/10 1000 AC PO 09/10 1001 Prednisone 20 MG DAILY 09/09 1000 DC PO 09/09 1001 Prednisone 40 MG DAILY 09/09 1000 DC 09/09 PO 09/09 1001 1119 Sodium Polystyrene 60 ML ONCE ONE 09/09 1645 DC 09/09 Sulfonate PO 09/09 1646 1815 Vital Signs Date Time Temp Pulse Resp B/P Pulse O2 O2 Flow FiO2 Ox Delivery Rate 09/10 0658 97.6 70 18 150/82 95 Room Air 09/09 2255 97.8 73 20 138/78 97 Room Air 09/09 2000 95 Room Air Room Air 09/09 1359 Room Air Room Air 09/09 1351 97.6 76 20 150/80 93 09/09 1118 67 146/78 Intake & Output 09/10 0800 09/10 0000 09/09 1600 Intake Total 750 Output Total Balance 750 Intake, IV 250 Intake, Oral 500 Physical Examination: General: HEENT: PERRLA, EOMI Neck: No Jugular Venous Distention noted Lungs: No wheezes or crackles were appreciated CV: Normal S1, S2, were heard; no murmurs were heard GI: Normal bowel sounds Neurological: Normal Speech. Results Results: Laboratory Tests 09/09/16 2113: 09/09/16 1145: Pleural pH 7.29 09/09/16 1145: Fld Mesothelial Cells 09/09/16 1145: Lymphocytes 17, % Normal PMNs 5, Phlebotomy Draw Site RT THORACENTESIS, Fluid Total Protein 4.5, Fluid Albumin 2.7, Fluid LDH 532, Fluid Cholesterol 62 09/09/16 1000: Fluid Cholesterol Cancelled 09/09/16 0635: Anion Gap 12, Estimated GFR 59 L, BUN/Creatinine Ratio 15.8, PT 13.1 H, INR 1.25 H, CBC w Diff NO MAN DIFF REQ, RBC 5.77, MCV 84.5, MCH 27.8, RDW 14.3, MPV 9.2, Gran % 90.1 H, Lymphocytes % 8.6 L, Monocytes % 1.3 L, Eosinophils % 0, Basophils % 0 L, Absolute Granulocytes 6.4, Absolute Lymphocytes 0.6 L, Absolute Monocytes 0.1 L, Absolute Eosinophils 0, Absolute Basophils 0, PUBS MCHC 32.9 L 09/09/16 0140: Lactate Dehydrogenase 457, Troponin I 0.03, Total Protein 6.6, Albumin 3.7 09/08/16 1902: Anion Gap 11, Estimated GFR 54 L, BUN/Creatinine Ratio 15.4, Glucose 90, Calcium 9.9, Total Bilirubin 0.7, AST 26, ALT 33, Alkaline Phosphatase 106, Troponin I 0.04, Ybv-X-Ypgeonbrzza Pept 1250 H, Total Protein 7.3, Albumin 4.1, Globulin 3.2, Albumin/Globulin Ratio 1.3, CBC w Diff NO MAN DIFF REQ, RBC 6.08, MCV 85.5, MCH 27.7, RDW 14.6 H, MPV 8.8, Gran % 73.9, Lymphocytes % 15.0 L, Monocytes % 8.0, Eosinophils % 2.6, Basophils % 0.5, Absolute Granulocytes 7.4 H, Absolute Lymphocytes 1.5, Absolute Monocytes 0.8 H, Absolute Eosinophils 0.3 , Absolute Basophils 0.1, PUBS MCHC 32.4 L Microbiology 09/09 114 BODY FLUID: Body Fluid Culture - RECD 09/09 1144 BODY FLUID: Gram Stain - RECD 09/09 913 LOWER RESP: Respiratory Culture - COLB 09/09 913 LOWER RESP: Gram Stain - COLB 09/09 529 URINE ROUT: Legionella Antigen - COMP 09/09 529 URINE ROUT: Streptococcus pneumoniae Antigen (M - COMP 09/09 1145 BODY FLUID: Gram Stain - RECD 09/09 913 LOWER RESP: Respiratory Culture - COLB 09/09 913 LOWER RESP: Gram Stain - COLB 09/09 529 URINE ROUT: Legionella Antigen - COMP 09/09 529 URINE ROUT: Streptococcus pneumoniae Antigen (M - COMP
--- NOTE | 2016-09-10 08:17 | PN- Pulmonary ---
MARIA L SHAW 09/10/16 0815: Subjective HPI/Critical Care Issues: Patient was visited and interview this morning. Shortness of breath has improved. She does not offer further major complaint. Vital signs are stable. NO Events overnight. Below is the problem list and plan: Objective Vital Signs & I&O Last 24 Hrs of Vitals and I&O: Vital Signs Date Time Temp Pulse Resp B/P Pulse O2 O2 Flow FiO2 Ox Delivery Rate 09/10 1104 70 150/82 09/10 1103 70 150/82 09/10 0855 95 Room Air Impression/Plan Impression/Plan Impression/Plan: 75-year-old gentleman with past medical history significant for bladder cancer status post resection and multiple other comorbidities was admitted for accidental finding of right-sided pleural effusion and underwent ultrasound- guided thoracocentesis yesterday. Reports from ultrasound guided thoracocentesis:1060 mL of slightly turbid dark yellow fluid was aspirated before drainage ceased. Body fluid analysis: Positive lights criteria, cholesterol 62 (suggestive of exudative pleural effusion) Assessment and plan 1. Right-sided pleural effusion status post thoracocentesis day 1 * Follow cytology results of bloody fluid analysis * Follow CT scan of contrast post thoracocentesis to assessment the lung parenchyma * Continue by mouth prednisone taper * TRC/neb 2. CKD- Sr. Cr 1.3. Currently stable 3. Hx of Bladder cance managed per medical team ARIE OVALLE MD 09/10/16 0911: Impression/Plan Impression/Plan Recommendations: Arie Mathew M.D. have examined this patient, reviewed available EMR data, personally reviewed images, discussed with resident/PA/VENTILATION EQUIPMENT TENDER, discussed management plan with housestaff and nursing staff, discussed managment plan all of healthcare providers, discussed management plan with patient and/or family, agreed with resident/PA/VENTILATION EQUIPMENT TENDER. The past history and parts of the chart have been autopopulated. Impression 75 year old man with a history of bladder ca and now with an exudative effusion. No fever, no wbc, unclear etiology, however malignancy/inflammatory causes are highest on differential, less likely infection. Plan -cont zithromax -prednisone taper as ordered -trc/nebs -f/u cytology -f/u ct chest to evaluate lung parenchyma post thoracentesis -dvt prophylaxis at all times
[2016-09-10 09:07] LABS: ABSOLUTE BASOPHIL COUNT 0 /CUMM (0.0-0.2); MEAN CORPUSCULAR HGB CONC 32.7 G/DL (33.0-37.0); RED BLOOD CELL CT 5.64 /CUMM (4.70-6.10)
[2016-09-10 09:39] LABS: ABSOLUTE EOSINOPHIL COUNT 0.2 /CUMM (0.0-0.7); ABSOLUTE GRANULOCYTE CT 14.3 /CUMM (1.4-6.5); ABSOLUTE LYMPH COUNT 1.3 /CUMM (1.2-3.4); ABSOLUTE MONOCYTE COUNT 1.2 /CUMM (0.10-0.60); BASOPHIL % 0 % (0.0-2.0); EOSINOPHIL % 1.1 % (0-5); HEMATOCRIT 47.9 % (42-52); MEAN CORPUSCULAR HGB 27.7 PG (27.0-31.0); MEAN CORPUSCULAR VOLUME 84.9 FL (80.0-94.0); MEAN PLATELET VOLUME 9.6 FL (7.4-10.4); PLATELET COUNT 298 /CUMM (130-400); RBC DISTRIBUTION WIDTH 14.1 % (11.5-14.5)
[2016-09-10] MEDS ORDERED: AZITHROMYCIN500 M3 PO ×2 (09:51→14:52)
[2016-09-10] MEDS ORDERED: PREDNISONE10 M2 PO ×3 (09:51→14:54)
--- NOTE | 2016-09-10 09:53 | Patient Discharge Instructions ---
Discharge Instructions General Discharge Information You were seen/treated for: 1. Pleural fluid(fluid accumulation around lung) Watch for these problems: 1. shortness of breath, fever 2. chest pain, palpitation. If you have any of these symptoms, please see your PCP/MD immediately. Special Instructions: 1. Please see your pcp within one week of discharge. 2. Please see your corn cutter within one week of discharge. Please discuss with him about the latest lab work from the lung tap fluid analysis. Acute Coronary Syndrome Inclusion Criteria At DC or during hospital stay patient has or had the following: ACS DIAGNOSIS No Discharge Core Measures Meds if any: Prescribed or Continued at Discharge Meds if any: NOT Prescribed or Continued at Discharge Congestive Heart Failure Inclusion Criteria At DC or during hospital stay patient has or had the following: CHF DIAGNOSIS No Discharge Core Measures Meds if any: Prescribed or Continued at Discharge Meds if any: NOT Prescribed or Continued at Discharge Cerebrovascular accident Inclusion Criteria At DC or during hospital stay patient has or had the following: CVA/TIA Diagnosis No Discharge Core Measures Meds if any: Prescribed or Continued at Discharge Meds if any: NOT Prescribed or Continued at Discharge Venous thromboembolism Inclusion Criteria VTE Diagnosis No VTE Type NONE VTE Confirmed by (Test) NONE Discharge Core Measures - Per Current guidelines, there needs to be overlap - treatment for the first 5 days of Warfarin therapy. - If discharged on Warfarin prior to 5 days of - overlap therapy, the patient will need to be - assessed for post discharge needs including - *Post discharge parental anticoagulation - *Warfarin and/or parental anticoagulation education - *Follow up date to check INR post discharge At least 5 days overlap therapy as Inpatient No Meds if any: Prescribed or Continued at Discharge Note: Overlap Therapy is Warfarin and Anticoagulant Meds if any: NOT Prescribed or Continued at Discharge
[2016-09-10 10:26] LABS: GRANULOCYTE % 84.2 % (42.2-75.2)
[2016-09-10 11:04] VITALS: BP 150/82
--- NOTE | 2016-09-10 11:07 | CT SCAN REPORT ---
EXAMINATION: CT CHEST WITHOUT CONTRAST CLINICAL INFORMATION: 75-year-old male, status post right-sided thoracentesis done on 09/09/2016. Shortness of breath. For follow-up. COMPARISON: CT of the chest done on 09/08/2016. TECHNIQUE: Multidetector volumetric CT imaging of the chest was done. Axial MIP volume rendering provided. Sagittal and coronal reformatted images were obtained. DLP: 583.03 mGy-cm. FINDINGS: REPEAT PHOTOCOMPOSING MACHINE OPERATOR: Unremarkable. LUNGS: Compressive atelectatic changes are noted at both lung bases (right greater than left related to underlying bilateral small pleural effusions. The remainder of the lung loco bilaterally appear clear. The tracheobronchial tree remain patent. MEDIASTINUM: Atherosclerotic disease including coronary arterial calcifications are present. There are no pathologically enlarged mediastinal, hilar lymphadenopathy present. PLEURA: The right-sided pleural effusion has significantly decreased since the prior study dated 09/08/2016, consistent with recent sonographic guided thoracentesis. There is a small left-sided pleural effusion present, shows minimal interval increase since the prior study. AXILLA: No lymphadenopathy. UPPER ABDOMEN: The visualized part of both kidneys shows features consistent with bilateral parapelvic renal cysts. Trace amount of free fluid is noted along the pericapsular surface of the visualized liver. OSSEOUS STRUCTURES: No suspicious lytic or sclerotic abnormality. IMPRESSION: 1. The size of the right-sided pleural effusion has significantly decreased since the prior CT of the chest done on 09/08/2016. 2. The left-sided pleural effusion has minimally increased since the prior study. 3. No other significant interval change.
--- NOTE | 2016-09-23 05:15 | Discharge Summary ---
Visit Information Visit Dates Admission Date: 09/08/16 Discharge Date: 09/10/16 Hospital Course Course Attending Physician: ARTHUR HORVATH MD Primary Care Physician: YUMIKO TAYLOR DO Hospital Course: He is an older man w/ a PMH of bladder cancer(dx'ed 1990) s/p mitomycin Tx, Schwannoma s/p resection w/ residual neuro deficit, vision and deafness is being evalauted for SOB at rest, cough w/ yellow green sputum x 2 wks. At the time of admission, vitals 98.2, TN 70, RR 20, BP 140/67, 91-93% RA; lung exam findings were significant for decreased air entry on right side, Lab findings indicated- WBC 10, HB 16.8, platelets 304, Na 146, K 5.2, HCO3 28, BUN 20, Sr 1.3( baseline 1.4), proBNP 1250(slight elevation, no radiological findings of CHF on cxr). CT chest - Right sided pleural effusion, and a small volume perihepatic ascites was seen. Differenital diagnosis: 1. Malignant pleural effusion 2. Empyema Below is the problem list and plan: 1. SOB- likely from large volume pleural effusion, that is likely causing SOB. Bladder mass is know to metastasize to lung, but nodular lesions are more likely. Infectious cause was another in differential. Pt was treated w/ Azithromycin to cover for atypical organisms, and prednisone. Diagnositic and therpeutic thoracenteis was done, with a relief of symptoms. Cytology was pending, maligant vs infectious cause. pH 7.29, pl LDH 532 ( pl LDH/sr LDH > 0.6 ), pl pr/sr pr >0.5; Increased fluid cholesterol- all these infavor of exudative effusion. Repeat CT scan revealed decrease in pleural effusion. To see Dr. Mcintosh for a follow up on cytology results from the pleural fluid analysis. 2. CKD- Range Sr. Cr 1.2-1.3. Currently stable. Potassium was slightly elevated (K 5.9), which normalized after treating w/ a K binding resin. No complaints were noted. 3. Bladder cancer- as per pt, cystoscopy was negative for any masses in the recent past. Sees Dr. Wu. No hematuria. Allergies: Coded Allergies: No Known Drug Allergies (UNKNOWN 04/08/16) Significant Procedures: US - US-THORACENTESIS 09/09/16- Successful left ultrasound-guided therapeutic and diagnostic thoracentesis. PLAN: 1. A postprocedure chest x-ray was ordered and will be dictated separately. 2. The patient was stable after the procedure and transferred to their room with instructions after standard monitoring. Pertinent Lab Results: CAT - CT CHEST W IV CONTRAST 09/08/16-1946 1. A moderate layering right-sided pleural effusion with overlying right basilar compressive atelectasis, accounting for the recently noted abnormalities within the right lung base on a similarly dated chest x-ray. No appreciable heterogeneity of the atelectatic lung parenchyma to suggest infection. No visible endobronchial or extrabronchial obstructing lesions. No suspicious pulmonary masses within the aerated portions of the bilateral lungs. However, please note that evaluation for underlying parenchymal and pleural lesions within the bilateral lung bases is limited given bilateral pleural effusions. 2. Small left-sided pleural effusion. 3. Partially visualized small volume perihepatic ascites. Suspected parapelvic cysts within the right kidney. US - US-DUPLEX VENOUS EXTREM UNI Normal triplex scan without evidence of deep venous thrombosis involving the right lower extremity. Mildly enlarged right inguinal/femoral lymph nodes which are nonspecific. CAT - CT CHEST WO IV CONTRAST 09/10/16-0500 1. The size of the right-sided pleural effusion has significantly decreased since the prior CT of the chest done on 09/08/2016. 2. The left-sided pleural effusion has minimally increased since the prior study. 3. No other significant interval change. Disposition Summary Disposition Principal Diagnosis: Pleural effusion Additional Diagnosis: h/o Bladder cancer Discharge Disposition: home or self care Discharge Instructions General Discharge Information Code Status: Full Code Patient's Diet: as tolerated Patient's Activity: as tolerated Follow-Up Instructions/Appts: 1. Please see your pcp within one week of discharge. 2. Please see your astrobiologist within one week of discharge. Please discuss with him about the latest lab work from the lung tap fluid analysis. Medications at Discharge Discharge Medications: Continue taking these medications: Nebivolol HCl (Bystolic) 10 MG TABLET 0.5 Tablet ORAL DAILY Qty = 30 Comments: Last Taken: 09/10/16 Time: 11 AM Amlodipine Besylate (Amlodipine Besylate) 5 MG TABLET 1 Tablet ORAL DAILY Qty = 30 Comments: Last Taken: 09/10/16 Time: 11 AM Lisinopril (Lisinopril) 40 MG TABLET 1 Tablet ORAL DAILY Qty = 90 Comments: NOT TAKEN IN HOSPITAL Atorvastatin Calcium (Atorvastatin Calcium) 10 MG TABLET 1 Tablet ORAL DAILY Qty = 90 Comments: Last Taken: 09/10/16 Time: 11 AM Copies To: YUMIKO TAYLOR DO Attending MD Review Statement Documenting Attending: ARTHUR HORVATH MD
[2016-10-29] MEDS ORDERED: FLOMAX0.4 M1 PO (08:40)
[2016-10-29] MEDS ORDERED: FINASTERIDE5 M1 PO (08:40)
== END 2016-09-10 15:00 | DRG 180 ==
LOC: CANRESERV → ENRESERVTM → ENRESERVDT → ERH 17:47 → ERHI 21:13 → 2NA 21:13 → ENPENDDIS 21:13 → 2NA 23:31
PROVIDERS: Internal Medicine; Internal Medicine Endocrinology, Diabetes & Metabolism; Physician Assistant; ADMIT Student in an Organized Health Care Education/Training Program
PROC: 0W993ZX Drainage of Right Pleural Cavity, Percutaneous Approach, Diagnostic (ICD-10-PCS; principal; 2016-09-09)
DX: C78.2 Secondary malignant neoplasm of pleura (principal); I26.99 Other pulmonary embolism without acute cor pulmonale; J44.0 Chronic obstructive pulmonary disease with (acute) lower respiratory infection; J44.1 Chronic obstructive pulmonary disease with (acute) exacerbation; J91.0 Malignant pleural effusion; N18.3 Chronic kidney disease, stage 3 (moderate); C67.9 Malignant neoplasm of bladder, unspecified; J20.9 Acute bronchitis, unspecified; E66.9 Obesity, unspecified; Z68.31 Body mass index [BMI] 31.0-31.9, adult; I12.9 Hypertensive chronic kidney disease with stage 1 through stage 4 chronic kidney disease, or unspecified chronic kidney disease; R29.810 Facial weakness; E78.5 Hyperlipidemia, unspecified; M48.00 Spinal stenosis, site unspecified; I69.892 Facial weakness following other cerebrovascular disease; I69.898 Other sequelae of other cerebrovascular disease; H53.9 Unspecified visual disturbance; Z87.891 Personal history of nicotine dependence
CPT/HCPCS: 2NASP; 87075; 36415; 82436; 87070; 87449; 87450; 88305; 93005; 93010; J0456; J1644; J3490; J7060; J7512

== ENCOUNTER 2016-09-22 19:26 | Inpatient (IN) | payer OTHER, MEDICARE ==
[~2016-09-22] VITALS: Ht 172.7 cm; Wt 101.2 kg
[~2016-09-22 19:26] MED LIST changes: +ATORVASTATIN CA10 M1 PO; +AZITHROMYCIN500 M3 PO; +PREDNISONE10 M2 PO
--- NOTE | 2016-09-22 19:39 | ED DYSPNEA/ASTHMA COMPLAINT ---
History of Present Illness General Chief Complaint: Dyspnea (COPD, CHF, Other) Stated Complaint: SOB X 3WEEKS Source: patient, family Exam Limitations: no limitations Vital Signs & Intake/Output Vital Signs & Intake/Output Vital Signs Date Time Temp Pulse Resp B/P Pulse O2 O2 Flow FiO2 Ox Delivery Rate 09/23 0024 97.4 66 18 140/68 94 Room Air 09/22 2216 98.1 61 20 157/79 969 Room Air 09/22 2202 94 09/22 2045 Room Air 09/228 159/76 09/22 1938 64 26 95 Room Air ED Intake and Output 09/23 0000 09/22 1200 Intake Total 0 Output Total Balance 0 Intake, Oral 0 Patient 220 lb Weight Allergies Coded Allergies: No Known Drug Allergies (UNKNOWN 04/08/16) Reconcile Medications Amlodipine Besylate 5 MG TABLET 1 TAB PO DAILY HTN (Reported) Atorvastatin Calcium 10 MG TABLET 1 TAB PO DAILY CHOLESTEROL (Reported) Cholecalciferol (Vitamin D3) (Vitamin D) (Unknown Strength) TABLET (Unknown Dose) PO DAILY SUPPLEMENT (Reported) Lisinopril 40 MG TABLET 1 TAB PO DAILY HTN (Reported) Nebivolol HCl (Bystolic) 10 MG TABLET 0.5 TAB PO DAILY HTN (Reported) Triage Note: PER PT CO DIFF BREATHING X 3 WEEKS WAS INPATIENT AND HAD FLUID DRAINED FROM LUNG BUT NEVER GOT ANY BETTER, DENIES CP BUT RT RIB TO LUNG PAIN 10/18 Triage Nurses Notes Reviewed? yes Onset: Gradual Duration: week(s): Timing: recent history Severity: mild, moderate Activities at Onset: none Prior Episodes/Possible Cause: patient recently admitted with pneumonia with pleural effusion Modifying Factors: Improves With: rest. Associated Symptoms: cough, wheezing HPI: 75-year-old gentleman history of COPD presents with dyspnea. He states that he was discharged approximately 2 weeks ago from the hospital for pneumonia. He had a pleural effusion which was drained. He states that since then he has had occasional episodes of dyspnea, associated with a mild cough and wheezing. He has no lower extremity swelling, chest pain, shortness of breath, chills, Reiger's. He has no significant sputum production. He is otherwise well and has no other concerns. Past History Travel History Traveled to [place] past 21 day No Medical History Any Pertinent Medical History? 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 Cardiovascular: hypertension, hyperlipidemia Respiratory: NONE Gastrointestinal: NONE Hepatic: NONE Renal: KIDNEY STONES BLADDER CA Musculoskeletal: spinal stenosis Psychiatric: NONE Endocrine: NONE Blood Disorders: NONE Cancer(s): BLADDER CA schwannoma COMMUNICATIONS DIRECTOR/Reproductive: PROSTATE PROBLEM History of MRSA: No History of VRE: No History of CDIFF: No Influenza Vaccine: 06/11/16 Surgical History Surgical History: Schwannoma removal - surgery twice Psychosocial History Who do you live with Family Services at Home None, NONE What is your primary language Welsh Tobacco Use: Never used Family History Family History, If Any: FATHER FH: leukemia MOTHER FH: diabetes mellitus Relation not specified for: FH: heart disease Hx Contributory? No Review of Systems Review of Systems Constitutional: Reports: no symptoms. EENTM: Reports: no symptoms. Respiratory: Reports: no symptoms. Cardiovascular: Reports: no symptoms. GI: Reports: no symptoms. Genitourinary: Reports: no symptoms. Musculoskeletal: Reports: no symptoms. Skin: Reports: no symptoms. Neurological/Psychological: Reports: no symptoms. Hematologic/Endocrine: Reports: no symptoms. Immunologic/Allergic: Reports: no symptoms. All Other Systems: Reviewed and Negative Physical Exam Physical Exam General Appearance: well developed/nourished, mild distress Head: atraumatic, normal appearance Eyes: Bilateral: normal appearance. Ears, Nose, Throat: normal pharynx, normal ENT inspection Neck: normal inspection, supple, full range of motion Respiratory: mild and expiratory wheeze Cardiovascular: regular rate/rhythm Gastrointestinal: normal bowel sounds, soft, non-tender, no organomegaly Rectal: normal exam, heme negative stool Extremities: normal inspection, normal capillary refill, normal range of motion Neurologic/Psych: no motor/sensory deficits, awake, alert, oriented x 3 Skin: intact, normal color, warm/dry Core Measures ACS in differential dx? No Severe Sepsis Present: No Septic Shock Present: No Progress Differential Diagnosis: asthma, CHF, COPD, pulmonary embolism, pneumonia Plan of Care: Orders Procedure Date/time Status Nothing by Mouth 09/23 B Active PARTIAL THROMBOPLASTIN TIME 09/23 0645 Active Patient Data 09/23 0047 Active Add-on Test (ER Only) 09/23 0009 Active Saline Lock 09/22 2352 Active Misc Message 09/22 2352 Active ED Holding Orders 09/22 2352 Active Vital Signs 09/22 2352 Active Code Status 02/12 2353 Active Admit to inpatient 09/22 2351 Active PARTIAL THROMBOPLASTIN TIME 09/22 1953 Complete PROTHROMBIN TIME 09/22 1953 Complete TROPONIN LEVEL 09/22 1938 Complete D-DIMER 09/22 1938 Complete COMPREHENSIVE METABOLIC PANEL 09/22 1938 Complete CBC WITHOUT DIFFERENTIAL 09/22 1938 Complete EKG 09/22 1926 Active Laboratory Tests 09/22/161953: Anion Gap 11, Estimated GFR 59 L, BUN/Creatinine Ratio 15.8, Glucose 106 H, Calcium 9.6, Total Bilirubin 0.5, AST 23, ALT 35, Alkaline Phosphatase 101, Troponin I 0.03, Total Protein 6.5, Albumin 3.6, Globulin 2.9, Albumin/Globulin Ratio 1.2, PT 12.2, INR 1.16, APTT 33, D-Dimer 1748 H, CBC w Diff NO MAN DIFF REQ, RBC 5.75, MCV 85.3, MCH 27.7, RDW 14.8 H, MPV 8.6, Gran % 78.6 H, Lymphocytes % 12.9 L, Monocytes % 6.7, Eosinophils % 1.7, Basophils % 0.1, Absolute Granulocytes 9.2 H, Absolute Lymphocytes 1.5, Absolute Monocytes 0.8 H, Absolute Eosinophils 0.2, Absolute Basophils 0, PUBS MCHC 32.4 L Diagnostic Imaging: Viewed by Me: Radiology Read, CT Scan. Discussed w/RAD: Radiology Read, CT Scan. CXR Impression: small bilateral pleural effusions. full report below. Initial ED EKG: normal axis, normal intervals, normal p-waves, normal QRS complex, normal sinus rhythm Comments: PATIENT: TRISH FANG PRESENT AGE: 75 PATIENT ACCOUNT NO: [id number] : 38 LOCATION: [facility] ORDERING PHYSICIAN: ZE LYNN MD SERVICE DATE: 09/22/16 EXAM TYPE: RAD - XRY-PORTABLE CHEST XRAY EXAMINATION: XR PORTABLE CHEST CLINICAL INFORMATION: Dyspnea. Recent thoracentesis. COMPARISON: Multiple priors, most recent chest CT dated 09/10/2016. TECHNIQUE: Portable AP view of the chest was obtained. FINDINGS: Mild bibasilar atelectasis. Small bilateral pleural effusions. No pneumothorax. Stable cardiomediastinal silhouette. No acute osseous abnormality. IMPRESSION: 1. Bibasilar atelectasis. 2. Small bilateral pleural effusions. DICTATED BY: QUYNH GONZÁLES MD DATE/TIME DICTATED:09/22/162100 AREA CAPTAIN:MARCE DATE/TIME TRANSCRIBED:09/22/162100 CONFIDENTIAL, DO NOT COPY WITHOUT APPROPRIATE AUTHORIZATION. <Electronically signed in Other Vendor System> SIGNED BY: QUYNH GONZÁLES MD 2109 Departure Departure Disposition: HOME OR SELF CARE Condition: Stable Clinical Impression Primary Impression: Pulmonary embolism Secondary Impressions: Dyspnea Referrals: YUMIKO TAYLOR DO (PCP/Family) Departure Forms: Customer Survey General Discharge Information Admission Note Spoke With: SAMUEL MEJIA MD Documentation of Exam: Documentation of any treatments & extenuating circumstances including Concerns Regarding Discharge (functional status, medication knowledge or non-compliance, living conditions, etc.) that warrant an admission rather than observation: Patiently recently discharged with pneumonia. Patient now has subsegmental pulmonary emboli. Heparin started. He is guaiac negative. Patient will merit long-term anticoagulation. Critical Care Note Critical Care Note Critical Care Time: 30-74 min
--- NOTE | 2016-09-22 20:01 | NUR ---
BLOOD DRAWN AMD SEMT TO LAB SST LAV BLUE TRAN
[2016-09-22 20:05] LABS: ABSOLUTE BASOPHIL COUNT 0 /CUMM (0.0-0.2); ABSOLUTE EOSINOPHIL COUNT 0.2 /CUMM (0.0-0.7); ABSOLUTE GRANULOCYTE CT 9.2 /CUMM (1.4-6.5); ABSOLUTE LYMPH COUNT 1.5 /CUMM (1.2-3.4); ABSOLUTE MONOCYTE COUNT 0.8 /CUMM (0.10-0.60); BASOPHIL % 0.1 % (0.0-2.0); EOSINOPHIL % 1.7 % (0-5); GRANULOCYTE % 78.6 % (42.2-75.2); MEAN CORPUSCULAR HGB 27.7 PG (27.0-31.0); MEAN CORPUSCULAR HGB CONC 32.4 G/DL (33.0-37.0); MEAN CORPUSCULAR VOLUME 85.3 FL (80.0-94.0); MEAN PLATELET VOLUME 8.6 FL (7.4-10.4); PLATELET COUNT 260 /CUMM (130-400); RBC DISTRIBUTION WIDTH 14.8 % (11.5-14.5); RED BLOOD CELL CT 5.75 /CUMM (4.70-6.10); WHITE BLOOD CELL COUNT 11.8 /CUMM (4.8-10.8)
--- NOTE | 2016-09-22 20:42 | NUR ---
PT AMBULATORY TO ROOM 3. CHANGED INTO HOSPITAL GOWN. AWAITING CHEST XRAY.
--- NOTE | 2016-09-22 20:51 | NUR ---
CHEST XRAY BEING DONE AT BEDSIDE
[2016-09-22] MEDS ORDERED: VITAMIN D2000 UNI1 PO (21:05)
--- NOTE | 2016-09-22 21:10 | RADIOLOGY REPORT ---
EXAMINATION: XR PORTABLE CHEST CLINICAL INFORMATION: Dyspnea. Recent thoracentesis. COMPARISON: Multiple priors, most recent chest CT dated 09/10/2016. TECHNIQUE: Portable AP view of the chest was obtained. FINDINGS: Mild bibasilar atelectasis. Small bilateral pleural effusions. No pneumothorax. Stable cardiomediastinal silhouette. No acute osseous abnormality. IMPRESSION: 1. Bibasilar atelectasis. 2. Small bilateral pleural effusions.
--- NOTE | 2016-09-22 21:54 | NUR ---
IV EST #20 IN RAC
--- NOTE | 2016-09-22 21:54 | NUR ---
RESPIRATORY CALLED FOR TREATMENT
--- NOTE | 2016-09-22 22:03 | NUR ---
RESP AT BEDSIDE FOR TX
--- NOTE | 2016-09-22 22:40 | NUR ---
PT RESTING COMFORTABLY ON STRETCHER AWAITING CAT SCAN
--- NOTE | 2016-09-22 23:14 | NUR ---
PT TO CAT SCAN
--- NOTE | 2016-09-22 23:55 | CT SCAN REPORT ---
EXAMINATION: CT ANGIOGRAM OF THE CHEST WITH AND WITHOUT CONTRAST (CT PULMONARY ANGIOGRAM FOR PE) CLINICAL INFORMATION: DYSPNEA +DIMER COMPARISON: 09/10/2016, 09/08/2016 TECHNIQUE: Prior to contrast administration, noncontrast localization images were obtained. Subsequently, multidetector volumetric imaging was performed from the thoracic inlet to below the diaphragms following the administration of 120 mL artery 350 intravenous contrast. No contrast reaction reported Sagittal, coronal, and MIP oblique sagittal reformatted images were obtained on the CT workstation, uploaded to PACS, and reviewed. Total exam dose-length product 555.09 mGy-cm FINDINGS: QUALITY OF STUDY/CONTRAST BOLUS: Satisfactory. PULMONARY ARTERIES: Subsegmental embolus is noted in the right upper lobe (image [id number]). In retrospect, segmental to subsegmental embolus was present at this location on 09/08/2016, with the volume of thrombus now decreased compared to that exam. Current appearance favors a subacute embolus, which is partially eccentric in location within the vessel. No additional pulmonary emboli are seen. THORACIC AORTA: No aneurysm or dissection. Scattered atherosclerotic calcifications are present. LUNG: There is dependent atelectasis in the bilateral lower lobes. No additional regions of consolidation. A few punctate nodules in the bilateral upper lobes appear unchanged from 09/10/2016. PLEURA: There are small to moderate right and small left pleural effusions, both increased in size from 09/10/2016. MEDIASTINUM: The visualized thyroid gland is unremarkable. There are subcentimeter mediastinal lymph nodes within the range of normal variation. Cardiac size is within normal limits; no pericardial effusion. Coronary artery calcifications are present. No evidence of septal bowing or right heart strain. CHEST WALL/AXILLA: No axillary or internal mammary lymphadenopathy. OSSEOUS STRUCTURES: Echogenic degenerative UPPER ABDOMEN: A small amount of perihepatic ascites is noted in the upper abdomen. No reflux of contrast into the hepatic veins to suggest elevated right heart pressures. IMPRESSION: 1. Subsegmental right upper lobe pulmonary embolus, favored to be subacute. 2. Increased small to moderate right and small left pleural effusions. Adjacent dependent lower lobe atelectasis. 3. Small volume of upper abdominal ascites. This critical result was discussed with ZE LYNN on 09/22/2016 11:52 PM, and it was ascertained that the content and urgency of the report was understood at the time of direct communication. VTE: positive
[2016-09-23 00:21] LABS: PT 12.2 SEC (9.4-12.5); PTT 33 SEC (25-37)
--- NOTE | 2016-09-23 00:44 | History & Physical ---
General Information and HPI Allergies/Medications Allergies: Coded Allergies: No Known Drug Allergies (UNKNOWN 04/08/16) Home Med list Amlodipine Besylate 5 MG TABLET 1 TAB PO DAILY HTN (Reported) Atorvastatin Calcium 10 MG TABLET 1 TAB PO DAILY CHOLESTEROL (Reported) Cholecalciferol (Vitamin D3) (Vitamin D) (Unknown Strength) TABLET (Unknown Dose) PO DAILY SUPPLEMENT (Reported) Lisinopril 40 MG TABLET 1 TAB PO DAILY HTN (Reported) Nebivolol HCl (Bystolic) 10 MG TABLET 0.5 TAB PO DAILY HTN (Reported) Past History Travel History Traveled to [place] past 21 day No Medical History Neurological: NONE 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 Cardiovascular: hypertension, hyperlipidemia Respiratory: NONE Gastrointestinal: NONE Hepatic: NONE Renal: KIDNEY STONES BLADDER CA Musculoskeletal: spinal stenosis Psychiatric: NONE Endocrine: NONE Blood Disorders: NONE Cancer(s): BLADDER CA schwannoma LMSW/Reproductive: PROSTATE PROBLEM History of MRSA: No History of VRE: No History of CDIFF: No Influenza Vaccine: 06/11/16 Surgical History Surgical History: Schwannoma removal - surgery twice Past Family/Social History Family History Relations & Conditions if any FATHER FH: leukemia MOTHER FH: diabetes mellitus Relation not specified for: FH: heart disease Psychosocial History Who Do You Live With? spouse Services at Home: None, NONE Functional Ability ADLs Independent: dressing, eating, toileting, bathing. Ambulation: independent IADLs Independent: shopping, housework, finances, food prep, telephone, transportation , medication admin. Core Measures/Miscellaneous Severe Sepsis Severe Sepsis Present: No Septic Shock Septic Shock Present: No
--- NOTE | 2016-09-23 00:54 | NUR ---
HEPARIN INITIATED AT 26MLS/HR. DOSE CHECKED WITH ANNIE FELIZ. NEXT PTT 0645.
--- NOTE | 2016-09-23 00:57 | History & Physical ---
LSIHA VASQUES,[facility] 09/23/16 0056: General Information and HPI MD Statement: I have seen and personally examined TRISH FANG and documented this H&P. The patient is a 75 year old M who presented with a patient stated chief complaint of [difficulty breathing]. Source of Information: patient Exam Limitations: no limitations History of Present Illness: Patient is a 75-year-old gentleman who has come to the ED due to worsening shortness of breath and wheezing for almost 3 weeks. She was recently admitted to [facility] at the end of August 2016 due to similar symptoms and was found to have right pleural effusion and underwent thoracentesis, which was exudative and the pathology report after discharge indicated malignant cells or urothelial origin. Patient's symptoms have been persistent after discharge and today he came back to the ED as his was insisting on it. Denies coughing, hemoptysis, chest pain or palpitations. Denies fever or chills, nausea vomiting , dizziness. Reports leg swelling more on the right side than the left which is not painful and was present during previous admission as well. He has a past medical history significant for bladder carcinoma s/p resection. 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 Allergies/Medications Allergies: Coded Allergies: No Known Drug Allergies (UNKNOWN 04/08/16) Home Med list Amlodipine Besylate 5 MG TABLET 1 TAB PO DAILY HTN (Reported) Atorvastatin Calcium 10 MG TABLET 1 TAB PO DAILY CHOLESTEROL (Reported) Cholecalciferol (Vitamin D3) (Vitamin D) (Unknown Strength) TABLET (Unknown Dose) PO DAILY SUPPLEMENT (Reported) Lisinopril 40 MG TABLET 1 TAB PO DAILY HTN (Reported) Nebivolol HCl (Bystolic) 10 MG TABLET 0.5 TAB PO DAILY HTN (Reported) Past History Travel History Traveled to [place] past 21 day No Medical History Neurological: NONE 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 Cardiovascular: hypertension, hyperlipidemia Respiratory: NONE Gastrointestinal: NONE Hepatic: NONE Renal: KIDNEY STONES BLADDER CA Musculoskeletal: spinal stenosis Psychiatric: NONE Endocrine: NONE Blood Disorders: NONE Cancer(s): BLADDER CA schwannoma [employer]/Reproductive: PROSTATE PROBLEM History of MRSA: No History of VRE: No History of CDIFF: No Influenza Vaccine: 06/11/16 Surgical History Surgical History: Schwannoma removal - surgery twice Past Family/Social History Family History Relations & Conditions if any FATHER FH: leukemia MOTHER FH: diabetes mellitus Relation not specified for: FH: heart disease Psychosocial History Who Do You Live With? spouse Services at Home: None, NONE Smoking Status: Former Smoker (quit>50 y ago, smoked for 15y) ETOH Use: denies use, occasional use Illicit Drug Use: denies illicit drug use Functional Ability ADLs Independent: dressing, eating, toileting, bathing. Ambulation: independent IADLs Independent: shopping, housework, finances, food prep, telephone, transportation , medication admin. Employment History Employment Retired Review of Systems Review of Systems Constitutional: Denies: chills, fever, malaise, weakness, unexplained weight loss. EENTM: Reports: blurred vision. Denies: visual changes, hearing changes. Cardiovascular: Reports: peripheral edema. Denies: chest pain, palpitations. Respiratory: Reports: short of breath, wheezing. Denies: cough, sputum production. GI: Reports: distention. Denies: abdominal pain, nausea, vomiting. Genitourinary: Reports: no symptoms. Musculoskeletal: Reports: no symptoms. Skin: Reports: no symptoms. Neurological/Psychological: Denies: headache, weakness. Hematologic/Endocrine: Reports: no symptoms. Exam & Diagnostic Data Last 24 Hrs of Vital Signs/I&O Vital Signs Date Time Temp Pulse Resp B/P Pulse O2 O2 Flow FiO2 Ox Delivery Rate 09/23 0024 97.4 66 18 140/68 94 Room Air 09/22 2217 98.1 61 20 157/79 969 Room Air 09/22 2202 94 09/22 2045 Room Air 09/22 1938 159/76 09/22 1938 64 26 95 Room Air Intake & Output 09/23 0800 09/23 0000 09/22 1600 Intake Total 0 Output Total Balance 0 Intake, Oral 0 Patient 99.79 kg Weight Physical Exam General Appearance Alert, Oriented X3, Cooperative, No Acute Distress Skin No Rashes, No Breakdown, No Significant Lesion HEENT Atraumatic, PERRLA, EOMI, Mucous Membr. moist/pink Neck Supple Cardiovascular Regular Rate, Normal S1, Normal S2, No Murmurs Lungs Clear to Auscultation, decreased breath sounds on the right lower lung Abdomen Normal Bowel Sounds, No Tenderness, distended Neurological Normal Speech, Strength at 5/5 X4 Ext, Normal Tone, Sensation Intact, Cranial Nerves 3-12 NL Extremities No Clubbing, No Cyanosis, Normal Pulses, 2+ pitting edema up to mid- lower leg, R>L Vascular Normal Pulses, Pulses Symmetrical Last 24 Hrs of Labs/Bebeto: Laboratory Tests 09/23/16 0535: Troponin I 0.03 09/23/16 0535: Bhd-A-Sljvbidurrn Pept 1120 H 09/23/16 0535: Anion Gap 9, Estimated GFR 59 L, BUN/Creatinine Ratio 14.2, APTT 108 *H 09/22/16 1954: Anion Gap 11, Estimated GFR 59 L, BUN/Creatinine Ratio 15.8, Glucose 106 H, Calcium 9.6, Total Bilirubin 0.5, AST 23, ALT 35, Alkaline Phosphatase 101, Troponin I 0.03, Total Protein 6.5, Albumin 3.6, Globulin 2.9, Albumin/Globulin Ratio 1.2, PT 12.2, INR 1.16, APTT 33, D-Dimer 1748 H, CBC w Diff NO MAN DIFF REQ, RBC 5.75, MCV 85.3, MCH 27.7, RDW 14.8 H, MPV 8.6, Gran % 78.6 H, Lymphocytes % 12.9 L, Monocytes % 6.7, Eosinophils % 1.7, Basophils % 0.1, Absolute Granulocytes 9.2 H, Absolute Lymphocytes 1.5, Absolute Monocytes 0.8 H, Absolute Eosinophils 0.2, Absolute Basophils 0, PUBS MCHC 32.4 L Assessment/Plan Assessment: Patient is a 75-year-old male who came to the ED due to persistent shortness of breath and wheezing. Patient was admitted to [facility] of August 2016 with similar symptoms plus found to have right pleural effusion that underwent a right thoracentesis with the cytology report of metastatic carcinoma of urothelial origin. Patient also has lower extremity edema and abdominal distention. Workup in the ED revealed subacute subsegmental pulmonary emboli in the CTA. Patient was started on IV heparin. Problem list and plan: Persistent shortness of breath and right sided pleural effusion Patient was found to have PE in the CTA, also increased small to moderate right and small left pleural effusions. Based on the previous cytopathology report, pleural effusion contains malignant cells of urothelial origin. Etiology of the PE is most probably the underlying malignancy. She also has bilateral lower extremity edema, will need to rule out CHF. DVT was ruled out during the recent admission. * Patient is already started on IV heparin * Pulmonary consult in a.m. * Contact urology * IV hydration to prevent kidney damage resulting from IV contrast Pedal edema * Rule out ACS with serial troponins and EKG, will need to rule out CHF, ECHO and Cardiology consult in a.m. Ascites distended abdomen and ascites reported in the CTA, in the setting of malignancy * We will do an abdominal and pelvis CT scan with IV contrast for possible metastasis Regular diet DVT prophylaxis with IV heparin Full code As Ranked By This Provider Problem List: 1. Abdominal pain 2. Hyperlipidemia 3. Hypertension 4. Dyspnea 5. Bladder cancer 6. Kidney stone on left side 7. Malignant pleural effusion 8. Pulmonary embolism Core Measures/Miscellaneous Acute Coronary Syndrome ACS Diagnosis: No Cerebrovascular Accident CVA/TIA Diagnosis: No Congestive Heart Failure CHF Diagnosis: No Venous Thromboembolism VTE Risk Factors: Acute medical illness, Age > 40, Malignancy Myelo Disorder VTE Prophylaxis Ordered Inpt: Pharm- Heparin No Mech VTE prophylaxis d/t: No contraindications No VTE Pharm Prophylaxis d/t: No contraindications VTE Diagnosis: Yes VTE Type: Pulmonary Embolism VTE Confirmed by (Test): CT CHEST ANGIOGRAM Severe Sepsis Severe Sepsis Present: No Septic Shock Septic Shock Present: No Miscellaneous Documentation Attending Case Discussed With: SAMUEL MEJIA MD Primary Care Physician: YUMIKO TAYLOR DO Patient sees these Specialists Dr. 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 According to patient his breathing worse very heavy and he was getting more short of breath lately and her insisted to come to ER for evaluation. On admission labs found to have elevated d-dimer's and for further evaluation CTA was done and found to haveSubsegmental right upper lobe pulmonary embolus and reference back to previous CAT scan on admission patient had small PEs since then so it favored to be subacute. Patient denied chest pain, palpitations, fever, chills, worsening lower extremity edema, nausea, vomiting, diarrhea, headache, any urinary or bowel complaints. Vital signs on admission were temperature 98.1, pulse 64, respiratory rate 26, blood pressure 159/76 and he was saturating 95% on room air. Initial labs showed WBC count 11.8, hemoglobin 15.9, hematocrit 49.0, platelet count 260, INR 1.16, d-dimer 1748, sodium 144, potassium 4.9, visual and 19, creatinine 1.2 and initial set of troponin was negative Physical examination Alert and oriented 3 HEENT right-sided paralysis and right-sided facial paralysis Chest reduced air entry at the bases Heart S1-S2 normal with no added sounds Abdomen soft, nontender with normal bowel sounds Extremities showed bilateral pitting edema Assessment and plan Patient is 75 year old gentleman with past medical history significant for bladder cancer with recent recurrence status post intravenous cycle mitomycin , recent thoracenteses positive for exudative pleural effusion and malignant cells, history of hypertension, hyperlipidemia and schwannoma status post resection being evaluated for worsening shortness of breath and found to have PE on CTA which seems like subacute in origin. Problem list 1. Pulmonary embolism most likely subacute 2. History of hypertension 3. History of hyperlipidemia 4. History of bladder cancer with recurrence 5. History of schwannoma status post resection We will admit patient on telemetry floor Vital signs every shift Patient was started on heparin drip in ER, we will continue heparin drip and will change it to oral anticoagulation after bridging. Patient was found to have a ascites on CAT scan revealed do pro BNP to rule out heart failure as he had a ascites, peripheral edema, pleural effusion. Pleural effusion which was found to be exudative could be due to PE/underlying malignancy. We will order echocardiogram in a.m to look for any heart strain. and will trend troponins and EKG to rule out ACS We will order CT abdomen and pelvis with contrast to look for intra-abdominal metastasis. We will hydrate patient to reduce contrast-induced nephropathy as he already received contrast for CTA. We will continue his home dose of beta taina and amlodipine but we will hold lisinopril for now as he had contrast for CTA. We will continue home dose of statins. Patient is nothing by mouth for abdominal ultrasound Pharmacological DVT prophylaxis Patient is full code SAMUEL MEJIA 09/23/16 0454: Attending MD Review Statement Attending Statement Attending MD Statement: examined this patient, discuss w/resident/PA/DIESEL SERVICE JOURNEYMAN, agreed w/resident/PA/DIESEL SERVICE JOURNEYMAN, reviewed EMR data (avail), reviewed images, amended to note Attending Assessment/Plan: CC: Right-sided chest pain, shortness of breath PMHx: HTN, BPH, history of nephrolithiasis, CKD, history of schwannoma S/P resection with residual weakness right facial droop, bladder cancer S/P resection and chemotherapy Patient was recently admitted from September 08 to September 10 for worsening of shortness of breath,cough and pleuritic chest pain. Patient was found to have right-sided pleural effusion for which he underwent thoracentesis, symptomatically improved, and was discharged. Even after going home patient kept on having right-sided chest pain, worsening of shortness of breath gradually so patient's insisted him to go to hospital. Denies any night sweats, weight loss, sputum production. He has chronic lower extremity swelling since last 2 months right more than left. Otherwise complete 14 point ROS negative Vitals: Afebrile, pulse 60s, RR 18-20, blood pressure 159/76, saturating 95% on room air. On exam: A O 3, anxious but in no distress, neck supple, no JVD, no lymphadenopathy, mucosa moist, CVS: S1-S2, RRR. RS: Clear air entry bilaterally. Abdomen: Distended, soft, bowel sounds present. Pitting edema bilateral lower extremity. No obvious skin rashes or inflammations. No focal neurological deficit except residual right-sided facial palsy. Labs: WBC 11.8 with neutrophils 78%, creatinine 1.2, troponin 0.03 otherwise BMP unremarkable, d-dimer 1748 CXR: Bibasilar atelectasis, small bilateral pleural effusions CTA chest: Subsegmental right upper lobe pulmonary embolus, favored to be subacute. Increased small to moderate right and small left pleural effusions. adjacent dependent lower lobe atelectasis. Small volume of upper abdominal ascites. A and P #1 pulmonary embolism right-sided subsegmental: When the radiologist called ER physician about critical value they also discussed comparison with previous CT scan done with IV contrast on on September 08, the previous CT scan was not dedicated for PE with CTA, the minimum defect could not be identified which was identified on current CTA, thus this is subacute embolism, patient has been started on heparin after stool guaiac. Continue heparin drip, check 1 more set of troponin, 2-D hold a.m. to evaluate right heart strain. The cause of PE is uncertain, patient has recent history of bladder cancer recurrence treated with chemotherapy, was thought to be under remission. But patient underwent thoracentesis on September 10, the report mentions malignant cells on cytology from pleural fluid. Metastatic cancer can be provoking factor for PE. #2 malignant pleural effusion: Increased as compared to previous CT scan after last thoracentesis, consult pulmonology, consult oncology, inform urology #3 ascites: Was seen on recent CTA, obtain CT abdomen with IV contrast for evaluation of metastases. Continue gentle hydration at 75 mL per hour to avoid renal insufficiency. #4 bilateral pedal edema: Previous DVT ultrasound done on right lower extremity was negative. Check proBNP. 2-D echo #5 HTN continue amlodipine and diastolic hold lisinopril.
--- NOTE | 2016-09-23 01:24 | NUR ---
PT HAS BED #224-1
--- NOTE | 2016-09-23 01:40 | NUR ---
REPORT GIVEN TO ANNIE GUSMAN
[2016-09-23 02:27] VITALS: BP 124/70
--- NOTE | 2016-09-23 04:55 | Admission Certification ---
Admission Certification Certification Statement - As attending physician, I certify that at the time of - admission, based on clinical presentation, severity of - symptoms, need for further diagnostic testing and - therapeutic interventions, and risk of adverse outcomes - without in-hospital treatment, in my clinical assessment, - this patient requires an acute hospital stay for a minimum - of two nights or longer. I have also considered psychsocial - factors such as support system, advanced age, financial - issues, cognitive issues, and failed out-patient treatments, - past re-admission history, safety of patient, and lack of - compliance as applicable. Specific rationale supporting this admission is: Pulmonary embolism, pleural effusion
[2016-09-23 06:26] LABS: PTT 108 SEC (25-37)
[2016-09-23 06:30] VITALS: BP 140/72
--- NOTE | 2016-09-23 07:26 | PN- Housestaff ---
ADRIA VASQUES,SACHI 09/23/16 0719: Subjective Follow-up For: Pulmonary embolism Subjective: Patient seen and examined, resting comfortably in chair. States he slept well through the night, offers no complaints. Review of Systems Constitutional: Reports: see HPI. Objective Last 24 Hrs of Vital Signs/I&O Vital Signs Date Time Temp Pulse Resp B/P Pulse O2 O2 Flow FiO2 Ox Delivery Rate 09/23 0630 97.9 75 20 140/72 93 Room Air 09/23 0257 94 Room Air 09/23 0227 98.7 67 20 124/70 95 Room Air 09/23 0024 97.4 66 18 140/68 94 Room Air 09/22 2217 98.1 61 20 157/79 969 Room Air 09/22 2202 94 09/22 2045 Room Air 09/22 1938 159/76 09/22 1937 64 26 95 Room Air Intake & Output 09/23 0800 09/23 0000 09/22 1600 Intake Total 109 0 Output Total 300 Balance -191 0 Intake, IV 109 Intake, Oral 0 Output, Urine 300 Patient 220 lb 220 lb Weight Physical Exam General Appearance: Alert, Oriented X3, Cooperative HEENT: Atraumatic, PERRLA, EOMI Cardiovascular: Regular Rate, Normal S1, Normal S2 Lungs: Clear to Auscultation, Normal Air Movement Abdomen: Normal Bowel Sounds, Soft, No Tenderness Extremities: No Clubbing, No Cyanosis Current Medications: Current Medications Sig/Jordon Start time Last Medication Dose Route Stop Time Status Admin Acetaminophen 650 MG Q6P PRN 09/23 0315 AC PO Albuterol Sulfate 3 ML ONCE ONE 09/22 2144 DC 09/22 INH 09/22 Amlodipine Besylate 5 MG DAILY 09/23 1000 AC PO Atorvastatin Calcium 10 MG DAILY 09/23 1000 AC PO Heparin Sodium 0 .STK-MED ONE 09/23 0027 DC (Porcine) .ROUTE Heparin Sodium 5,000 UNIT ONCE ONE 09/23 14 DC 09/23 (Porcine) IV 09/23 15 0043 Heparin Sodium 25,000 UNIT Q24H 09/23 001 AC 09/23 (Porcine) IV 0043 Sodium Chloride 500 ML Ibuprofen 600 MG Q6P PRN 09/23 0315 AC PO Ipratropium [place] 2.5 ML ONCE ONE 09/22 2144 DC 09/22 INH 02/12 2146 2200 Lisinopril 40 MG DAILY 09/23 1000 CAN PO Nebivolol 5 MG DAILY 09/23 1000 AC PO Oxycodone HCl 10 MG Q6P PRN 09/23 0315 AC PO Sodium Chloride 1,000 ML Q13H 09/23 0500 AC 09/23 IV 0541 Last 24 Hrs of Lab/Bebeto Results Last 24 Hrs of Labs/Mics: Laboratory Tests 09/23/16 0535: Troponin I 0.03 09/23/16 0535: Ait-B-Cpxztiostrq Pept 1120 H 09/23/16 0535: Anion Gap 9, Estimated GFR 59 L, BUN/Creatinine Ratio 14.2, APTT 108 *H 09/22/16 1954: Anion Gap 11, Estimated GFR 59 L, BUN/Creatinine Ratio 15.8, Glucose 106 H, Calcium 9.6, Total Bilirubin 0.5, AST 23, ALT 35, Alkaline Phosphatase 101, Troponin I 0.03, Total Protein 6.5, Albumin 3.6, Globulin 2.9, Albumin/Globulin Ratio 1.2, PT 12.2, INR 1.16, APTT 33, D-Dimer 1748 H, CBC w Diff NO MAN DIFF REQ, RBC 5.75, MCV 85.3, MCH 27.7, RDW 14.8 H, MPV 8.6, Gran % 78.6 H, Lymphocytes % 12.9 L, Monocytes % 6.7, Eosinophils % 1.7, Basophils % 0.1, Absolute Granulocytes 9.2 H, Absolute Lymphocytes 1.5, Absolute Monocytes 0.8 H, Absolute Eosinophils 0.2, Absolute Basophils 0, PUBS MCHC 32.4 L Assessment/Plan Assessment: Assessment- 1. Pulmonary embolism, acute versus subacute 2. Small left pleural effusion, possibly malignant pleural effusion 3. History of bladder cancer 4. Hypertension 5. Hyperlipidemia Plan- Continue IV fluids Continue IV heparin, will consider warfarin versus NOAC when patient gets discharged, in case he needs a thoracentesis which at this point seems unlikely, it would be better to keep him on the heparin drip for now Pending echocardiogram to rule out right heart strain Oncology and pulmonology consult Pending serial troponin and EKG Pending CAT scan of the abdomen and pelvis to rule out metastases Continue all home meds Problem List: 1. Malignant pleural effusion 2. Pulmonary embolism 3. Pleural effusion 4. Hyperlipidemia 5. Hypertension Pain Ratin Pain Location: none Pain Goal: Remain pain free Pain Plan: per emr Tomorrow's Labs & Rationales: per emr JULISA MOCTEZUMA MD 09/23/164: Attending MD Review Statement Attending Statement Attending MD Statement: examined this patient, discuss w/resident/PA/CAR UNLOADER HELPER, agreed w/resident/PA/CAR UNLOADER HELPER, reviewed EMR data (avail), discussed with nursing, discussed with case mgmt, reviewed images, amended to note Attending Assessment/Plan: The patient was seen and discussed with house staff. Agree with the plan of care as outlined. Pulmonary input appreciated.
--- NOTE | 2016-09-23 09:48 | Cons- Oncology ---
General Information and HPI Consulting Request Date of Consult: 09/23/16 Requested By: SAMUEL MEJIA MD Reason for Consult: PE and bladder cancer Source of Information: patient, old records Exam Limitations: no limitations History of Present Illness: Mr. Tapia is a 75-year-old male with previous history of bladder cancer s/p resection with recurrence 2016 and intravesicular mitomycin, HTN, CKD, shwannoma s/p resection with residual neuro deficit who presents to the hospital with worsening shortness of breath. He has been having difficulty with breathing for the last 3 weeks. He was admitted from 09/08 to 09/10/2016 who similar symptoms. He was found to have a large volume pleural effusion. He underwent thoracentesis at that time. Cytology returned as malignancy and consistent with likely urothelial origin. On presentation to the ED, he was evaluated with CTA of the chest whiche demonstrated subsegmental right upper lobe pulmonary embolus, favored to be subacute. He had small to moderate right pleural effusions. He also has a small left pleural effusion. He was started on heparin drip. Currently, he feels better. Breathing is improved. He denies any new symptoms. He denies any fever or chills. He has no weight loss. He does have some right lower rib pain. Allergies/Medications Allergies: Coded Allergies: No Known Drug Allergies (UNKNOWN 04/08/16) Home Med List: Amlodipine Besylate 5 MG TABLET 1 TAB PO DAILY HTN (Reported) Atorvastatin Calcium 10 MG TABLET 1 TAB PO DAILY CHOLESTEROL (Reported) Cholecalciferol (Vitamin D3) (Vitamin D) (Unknown Strength) TABLET (Unknown Dose) PO DAILY SUPPLEMENT (Reported) Lisinopril 40 MG TABLET 1 TAB PO DAILY HTN (Reported) Nebivolol HCl (Bystolic) 10 MG TABLET 0.5 TAB PO DAILY HTN (Reported) Current Medications: Current Medications Sig/Jordon Start time Last Medication Dose Route Stop Time Status Admin Acetaminophen 650 MG Q6P PRN 09/23 0315 AC PO Albuterol Sulfate 3 ML ONCE ONE 09/22 2144 DC 09/22 INH 09/22 Amlodipine Besylate 5 MG DAILY 09/23 1000 AC PO Atorvastatin Calcium 10 MG DAILY 09/23 1000 AC PO Heparin Sodium 0 .STK-MED ONE 09/23 0027 DC (Porcine) .ROUTE Heparin Sodium 5,000 UNIT ONCE ONE 09/23 0015 DC 09/23 (Porcine) IV 09/23 0016 0043 Heparin Sodium 25,000 UNIT Q24H 09/23 0015 AC 09/23 (Porcine) IV 0043 Sodium Chloride 500 ML Ibuprofen 600 MG Q6P PRN 09/23 0315 AC PO Ipratropium [place] 2.5 ML ONCE ONE 09/22 2145 DC 09/22 INH 09/22 214 2200 Lisinopril 40 MG DAILY 09/23 1000 CAN PO Nebivolol 5 MG DAILY 09/23 1000 AC PO Oxycodone HCl 10 MG Q6P PRN 09/23 0315 AC PO Sodium Chloride 1,000 ML Q13H 09/23 0500 AC 09/23 IV 0541 Review of Systems Review of Systems Constitutional: Denies: chills, diaphoresis, fever, weakness, unexplained weight loss. EENTM: Denies: blurred vision, double vision. Cardiovascular: Reports: edema, peripheral edema. Denies: chest pain, palpitations, syncope. Respiratory: Reports: short of breath. Denies: cough, hemoptysis, sputum production, wheezing. GI: Reports: bloating, distention. Denies: constipation, diarrhea, melena, nausea, bloody stool, changes in stool, vomiting. Genitourinary: Denies: hematuria. Skin: Denies: rash. Neurological/Psychological: Denies: ataxia, confusion. Hematologic/Endocrine: Denies: bruising, bleeding. 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 spouse Services at Home: None, NONE Smoking Status: Former Smoker (quit>50 y ago, smoked for 15y) ETOH Use: denies use, occasional use Illicit Drug Use: denies illicit drug use Functional Ability ADLs Independent: dressing, eating, toileting, bathing. Ambulation: independent IADLs Independent: shopping, housework, finances, food prep, telephone, transportation , medication admin. Employment History Employment: Retired Exam & Diagnostic Data Vital Signs and I&O Vital Signs Date Time Temp Pulse Resp B/P Pulse O2 O2 Flow FiO2 Ox Delivery Rate 09/23 0630 97.9 75 20 140/72 93 Room Air 09/23 0257 94 Room Air 09/23 0227 98.7 67 20 124/70 95 Room Air 09/23 0024 97.4 66 18 140/68 94 Room Air 09/22 2217 98.1 61 20 157/79 969 Room Air 09/22 2202 94 09/22 2045 Room Air 09/22 1938 159/76 09/22 1938 64 26 95 Room Air Intake & Output 09/23 1600 09/23 0800 09/23 0000 Intake Total 109 0 Output Total 300 Balance -191 0 Intake, IV 109 Intake, Oral 0 Output, Urine 300 Patient 101.151 kg 99.79 kg Weight Physical Exam General Appearance: well developed/nourished, no apparent distress, alert, awake , comfortable Head: atraumatic Eyes: Right: other (decrease vision on right eye). Bilateral: normal appearance, PERRL. Ears, Nose, Throat: normal pharynx, decreased hearing on the right ear Respiratory: normal breath sounds, chest non-tender, quiet respiration, decreased breath sounds (R worse than left), crackles Cardiovascular: regular rate/rhythm, systolic murmur Gastrointestinal: normal bowel sounds, soft, non-tender, distention Back: normal inspection Extremities: no edema Neurologic/Psych: alert, oriented x 3, decreased hearing on right, decrease vision on right Skin: rash Lymphatic: no anterior cervical dara Last 48 Hours of Lab Results: Laboratory Tests 09/23 09/23 09/23 09/22 0535 0535 0535 1954 Chemistry Sodium (137 - 145 mmol/L) 139 144 Potassium (3.5 - 5.1 mmol/L) 4.5 4.9 Chloride (98 - 107 mmol/L) 107 107 Carbon Dioxide (22 - 30 mmol/L) 23 26 Anion Gap (5 - 16) 9 11 BUN (9 - 20 mg/dL) 17 19 Creatinine (0.7 - 1.2 mg/dL) 1.2 1.2 Estimated GFR (>60 ml/min) 59 L 59 L BUN/Creatinine Ratio (7 - 25 %) 14.2 15.8 Glucose (65 - 99 mg/dL) 106 H Calcium (8.4 - 10.2 mg/dL) 9.6 Total Bilirubin (0.2 - 1.3 mg/dL) 0.5 AST (17 - 59 U/L) 23 ALT (21 - 72 U/L) 35 Alkaline Phosphatase (< 127 U/L) 101 Troponin I (<0.11 ng/ml) 0.03 0.03 Mlq-E-Zetlrofxias Pept (<125 pg/mL) 1120 H Total Protein (6.3 - 8.2 g/dL) 6.5 Albumin (3.5 - 5.0 g/dL) 3.6 Globulin (1.9 - 4.2 gm/dL) 2.9 Albumin/Globulin Ratio (1.1 - 2.2 %) 1.2 Coagulation PT (9.4 - 12.5 SEC) 12.2 INR (0.90 - 1.17) 1.16 APTT (25 - 37 SEC) 108 *H 33 D-Dimer (70 - 232 ng/ml) 1748 H Hematology CBC w Diff NO MAN DIFF REQ WBC (4.8 - 10.8 /CUMM) 11.8 H RBC (4.70 - 6.10 /CUMM) 5.75 Hgb (14.0 - 18.0 G/DL) 15.9 Hct (42 - 52 %) 49.0 MCV (80.0 - 94.0 FL) 85.3 MCH (27.0 - 31.0 PG) 27.7 RDW (11.5 - 14.5 %) 14.8 H Plt Count (130 - 400 /CUMM) 260 MPV (7.4 - 10.4 FL) 8.6 Gran % (42.2 - 75.2 %) 78.6 H Lymphocytes % (20.5 - 51.1 %) 12.9 L Monocytes % (1.7 - 9.3 %) 6.7 Eosinophils % (0 - 5 %) 1.7 Basophils % (0.0 - 2.0 %) 0.1 Absolute Granulocytes (1.4 - 6.5 /CUMM) 9.2 H Absolute Lymphocytes (1.2 - 3.4 /CUMM) 1.5 Absolute Monocytes (0.10 - 0.60 /CUMM) 0.8 H Absolute Eosinophils (0.0 - 0.7 /CUMM) 0.2 Absolute Basophils (0.0 - 0.2 /CUMM) 0 PUBS MCHC (33.0 - 37.0 G/DL) 32.4 L Imaging/Other Studies: CTA chest 09/22/2016: 1. Subsegmental right upper lobe pulmonary embolus, favored to be subacute. 2. Increased small to moderate right and small left pleural effusions. Adjacent dependent lower lobe atelectasis. 3. Small volume of upper abdominal ascites. Assessment/Plan Assessment: Mr. 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 On admission, he was noted to have subsegmental PE. This is unlikely to cause his dyspnea given the low volume of thrombosis. He has a small/moderate right pleural effusion and now small left pleural effusion. This may be the reason for his underlying dyspnea. His cytology from previous admission was positive for malignancy consistent with metastatic urothelial cancer. He will need to complete staging. He will need bone scan given the new rib pain. He will need CT of the abdomen and pelvis. He should have an echocardiogram if he has not had one. He can continue on heparin drip and transition to oral when no other procedure is planned. He will need follow up to discuss therapeutic options. Recommendations: 1. Continue heparin drip and transition to oral anticoagulant when no longer needing procedure 2. Follow up urology recommendation 3. Follow up pulmonary recommendation 4. Obtain CT of abdomen/pelvis 5. Obtain Bone scan 6. Echocardiogram if he has not had one done recently Problem List: 1. Pulmonary embolism 2. Malignant pleural effusion 3. Bladder cancer Other Findings/Comments: Please call [phone] with any questions or concerns. Consult Acknowledgment - Thank you for your consult request.
--- NOTE | 2016-09-23 10:50 | NUR ---
MEDICAL TEAM ORDERED THORACENTESIS AND BONE SCAN TO BE COMPLETED TODAY. AFTER SPEAKING WITH INTERVENTIONAL RADIOLOGY, HEPARIN GTT NEEDS TO BE HELD FOR FOUR HOURS BEFORE PROCEDURE PER RADIOLOGIST. RESIDENT SUAZO MADE AWARE, CONSULTING DR. HALL FOR RECOMMENDATIONS REGARDING THORACENTESIS AND THEN WILL UPDATE IR. UPON SPEAKING WITH NUCLEAR MEDICINE, PT CANNOT HAVE THORACENTESIS ONCE PT IS INJECTED FOR BONE SCAN AND THE DEPARTMENT CANNOT INJECT HIM LATER THAN 1130. RESIDENT SUAZO MADE AWARE AND WILL UPDATE THIS RN ONCE HEARS FROM DR. HALL. IF LATER THAN 1130, PT WILL HAVE BONE SCAN TOMORROW. HEPARIN GTT RUNNING AT 21.9. NEXT PTT, CBC, AND TROPONIN AT 1230, RESIDENT SUAZO AWARE. WILL MONITOR.
[2016-09-23 12:21] LABS: ABSOLUTE BASOPHIL COUNT 0 /CUMM (0.0-0.2); ABSOLUTE EOSINOPHIL COUNT 0.1 /CUMM (0.0-0.7); ABSOLUTE GRANULOCYTE CT 7.8 /CUMM (1.4-6.5); ABSOLUTE MONOCYTE COUNT 0.6 /CUMM (0.10-0.60); BASOPHIL % 0.3 % (0.0-2.0); EOSINOPHIL % 1.4 % (0-5); GRANULOCYTE % 81.4 % (42.2-75.2); HEMATOCRIT 47.8 % (42-52); MEAN CORPUSCULAR HGB 27.6 PG (27.0-31.0); MEAN CORPUSCULAR HGB CONC 32.7 G/DL (33.0-37.0); MEAN CORPUSCULAR VOLUME 84.5 FL (80.0-94.0); MEAN PLATELET VOLUME 8.6 FL (7.4-10.4); PLATELET COUNT 236 /CUMM (130-400); RBC DISTRIBUTION WIDTH 14.4 % (11.5-14.5); RED BLOOD CELL CT 5.65 /CUMM (4.70-6.10); WHITE BLOOD CELL COUNT 9.6 /CUMM (4.8-10.8)
[2016-09-23 12:25] LABS: PTT 76 SEC (25-37)
--- NOTE | 2016-09-23 12:52 | Cons- Pulmonary ---
General Information and HPI Consulting Request Date of Consult: 09/23/16 Requested By: Dr. Cornell Reason for Consult: Recurrent pleural effusion Source of Information: patient, family Exam Limitations: no limitations History of Present Illness: The patient is a 75 year old male with a past medical history of metastatic bladder cancer, with an associated right sided malignant pleural effusion. He also has a history of COPD, spinal stenosis, CKD, hypertension, hyperlipidemia, and a schwannoma status post surgery 2. The patient was admitted to the medical floor with increased shortness of breath occurring over the past 3 weeks. The patient underwent evaluation including a CT angiogram which demonstrated a subsegmental right upper lobe pulmonary embolism thought to be subacute. He also had small to moderate bilateral effusions noting the effusion on the right is bigger than on the left. He's been started on a heparin drip. The patient reports feeling improved since admission. He denies any new symptoms. There is no history of fever, chills, cough, chest congestion or sputum production. There were no overnight events reported. Allergies/Medications Allergies: Coded Allergies: No Known Drug Allergies (UNKNOWN 04/08/16) Home Med List: Amlodipine Besylate 5 MG TABLET 1 TAB PO DAILY HTN (Reported) Atorvastatin Calcium 10 MG TABLET 1 TAB PO DAILY CHOLESTEROL (Reported) Cholecalciferol (Vitamin D3) (Vitamin D) (Unknown Strength) TABLET (Unknown Dose) PO DAILY SUPPLEMENT (Reported) Lisinopril 40 MG TABLET 1 TAB PO DAILY HTN (Reported) Nebivolol HCl (Bystolic) 10 MG TABLET 0.5 TAB PO DAILY HTN (Reported) Past History Travel History Traveled to [place] past 21 day No Medical History Blood Transfusion Hx: Yes Neurological: NONE 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 spouse Services at Home: None, NONE Smoking Status: Former Smoker (quit>50 y ago, smoked for 15y) ETOH Use: denies use, occasional use Illicit Drug Use: denies illicit drug use Functional Ability ADLs Independent: dressing, eating, toileting, bathing. Ambulation: independent IADLs Independent: shopping, housework, finances, food prep, telephone, transportation , medication admin. Employment History Employment: Retired Exam & Diagnostic Data Last 24 Hrs of Vital Signs/I&O Vital Signs Date Time Temp Pulse Resp B/P Pulse O2 O2 Flow FiO2 Ox Delivery Rate 09/23 1042 67 130/68 09/23 1033 67 130/68 09/23 1033 67 130/68 09/23 1000 92 Room Air 09/23 0630 97.9 75 20 140/72 93 Room Air 09/23 0257 94 Room Air 09/23 0227 98.7 67 20 124/70 95 Room Air 09/23 0024 97.4 66 18 140/68 94 Room Air 09/22 2217 98.1 61 20 157/79 969 Room Air 09/22 2202 94 09/22 2045 Room Air 09/22 1938 159/76 09/22 1938 64 26 95 Room Air Intake & Output 09/23 1600 09/23 0800 09/23 0000 Intake Total 109 0 Output Total 300 Balance -191 0 Intake, IV 109 Intake, Oral 0 Output, Urine 300 Patient 223 lb 220 lb Weight Physical Exam General Appearance: well developed/nourished, no apparent distress, alert, awake , comfortable Head: atraumatic, normal appearance Neck: supple Respiratory: decreased breath sounds, clear bilaterally Cardiovascular: regular rate/rhythm Gastrointestinal: normal bowel sounds Extremities: no edema Last 48 Hrs of Labs/Bebeto: Laboratory Tests 09/23/16 1205: Troponin I Pending, APTT 76 H, CBC w Diff NO MAN DIFF REQ, RBC 5.65, MCV 84.5, MCH 27.6, RDW 14.4, MPV 8.6, Gran % 81.4 H, Lymphocytes % 10.4 L, Monocytes % 6.5, Eosinophils % 1.4, Basophils % 0.3, Absolute Granulocytes 7.8 H, Absolute Lymphocytes 1.0 L, Absolute Monocytes 0.6, Absolute Eosinophils 0.1, Absolute Basophils 0, PUBS MCHC 32.7 L 09/23/16 0535: Troponin I 0.03 09/23/16 0535: Eus-Q-Zwbpzquhnhl Pept 1120 H 09/23/16 0535: Anion Gap 9, Estimated GFR 59 L, BUN/Creatinine Ratio 14.2, APTT 108 *H 09/22/161953: Anion Gap 11, Estimated GFR 59 L, BUN/Creatinine Ratio 15.8, Glucose 106 H, Calcium 9.6, Total Bilirubin 0.5, AST 23, ALT 35, Alkaline Phosphatase 101, Troponin I 0.03, Total Protein 6.5, Albumin 3.6, Globulin 2.9, Albumin/Globulin Ratio 1.2, PT 12.2, INR 1.16, APTT 33, D-Dimer 1748 H, CBC w Diff NO MAN DIFF REQ, RBC 5.75, MCV 85.3, MCH 27.7, RDW 14.8 H, MPV 8.6, Gran % 78.6 H, Lymphocytes % 12.9 L, Monocytes % 6.7, Eosinophils % 1.7, Basophils % 0.1, Absolute Granulocytes 9.2 H, Absolute Lymphocytes 1.5, Absolute Monocytes 0.8 H, Absolute Eosinophils 0.2, Absolute Basophils 0, PUBS MCHC 32.4 L Assessment/Plan Impression/Plan: 1. Right greater than left pleural effusion, previously tapped and found to be malignant. 2. New right upper lobe pulmonary embolism. 3. Metastatic bladder cancer. Recommendations: * Continuing to coagulation for pulmonary embolism. * I will discuss the patient's case with CT surgery to consider Pleurx catheter placement. * O2 to maintain saturations greater than 92%. * Continue all supportive care. * Once I discussed the issue with CT surgery, we will be able to better define the plan. Consult Acknowledgment - Thank you for your consult request.
--- NOTE | 2016-09-23 14:13 | NUR ---
SPOKE WITH RESIDENT SUAZO REGARDING BONE SCAN TODAY. PT RECEIVED INJECTION FOR BONE SCAN LATER TODAY. SC LOVENOX ORDERED FOR TWO ORDERS AFTER IV HEPARIN DC'D. HEPARIN DC'D AT 1300. WILL GIVE SC LOVENOX AT 1500. PER RESIDENT LAKEISHA, THORACENTESIS PENDING DR. HALL'S RECOMMENDATION. HELD FOR NOW.
[2016-09-23 14:21] VITALS: BP 130/62
--- NOTE | 2016-09-23 17:37 | NUCLEAR MEDICINE REPORT ---
EXAMINATION: NM BONE SCAN WHOLE BODY CLINICAL INFORMATION: Urothelial cancer with pleural metastasis. COMPARISON: No previous bone scan is available for comparison. A radiograph of the chest dated 09/22/2016 is available for comparison. CTA of the chest also dated 09/22/2016 is available for comparison. The diagnostic CT scan of the abdomen and pelvis, dated 10/09/2013, is available for comparison. TECHNIQUE: Multiple gamma scintillation camera images of the whole body were performed 2.5 hours following the intravenous administration of 33.6 mCi Tc-99m HDP. FINDINGS: In the head, no significant abnormalities are present. In the thoracic cage and upper extremities, there is diffusely increased activity which is fairly homogeneous in the left ventricular myocardium. There is mildly increased activity in the chromic clavicular and sternoclavicular joints bilaterally, most prominently in the right sternoclavicular joint. There is mildly increased activity in a few periarticular foci in both hands and wrists. The forearms are not entirely included in the [id number] and cannot be fully evaluated. In the spine, there is mildly increased activity in the left posterior elements at the L5-S1 level. There is also small focus of mildly increased activity in the left posterior elements of the upper cervical spine likely at the T1 level. In the pelvis, no significant abnormalities are present. In the lower extremities, there is a mild diffuse increase in activity in the left patella. No other definite bony abnormalities are noted. The urinary bladder and faint visualization of both kidneys are noted. The CT scan dated 10/09/2013 shows facet arthropathy at L5-S1, corresponding to bone scan abnormalities described above. IMPRESSION: 1. Diffuse bone agent uptake in the myocardium is nonspecific, but is most commonly due to cardiac amyloidosis. Ischemic heart disease and ventricular aneurysms can also be responsible for myocardial uptake of bone agent, but these are usually not is uniform as is noted in this patient. 2. A few additional mild nonspecific abnormalities are noted as described above and these are all likely arthritic or traumatic in etiology. None of these abnormalities is strongly suspicious for metastatic disease.
[2016-09-23 23:53] VITALS: BP 110/70
--- NOTE | 2016-09-24 06:44 | PN- Housestaff ---
ADRIA VASQUES,[facility] 09/24/16 0640: Subjective Follow-up For: Pulmonary embolism Metastatic bladder cancer Subjective: Patient seen and examined this morning, resting comfortably in hospital bed. States that he slept through most of the night; denies any shortness of breath or any other symptoms. Review of Systems Constitutional: Reports: see HPI. Objective Last 24 Hrs of Vital Signs/I&O Vital Signs Date Time Temp Pulse Resp B/P Pulse O2 O2 Flow FiO2 Ox Delivery Rate 09/24 0000 94 Room Air 09/23 2353 97.7 59 20 110/70 94 Room Air 09/23 1421 98.5 62 18 130/62 90 Room Air 09/23 1042 67 130/68 09/23 1033 67 130/68 09/23 1033 67 130/68 09/23 1000 92 Room Air Intake & Output 09/24 0800 09/24 0000 09/23 1600 Intake Total 350 800 760 Output Total 150 Balance 350 800 610 Intake, IV 260 Intake, Oral 350 800 500 Number 0 Bowel Movements Output, Urine 150 Physical Exam General Appearance: Alert, Oriented X3, Cooperative, No Acute Distress HEENT: Atraumatic, PERRLA, EOMI Cardiovascular: Regular Rate, Normal S1, Normal S2 Lungs: Normal Air Movement, faint crackles right lung base Abdomen: Normal Bowel Sounds, Soft, No Tenderness Orders Radiology Findings: Nuclear bone scan-IMPRESSION: 1. Diffuse bone agent uptake in the myocardium is nonspecific, but is most commonly due to cardiac amyloidosis. Ischemic heart disease and ventricular aneurysms can also be responsible for myocardial uptake of bone agent, but these are usually not is uniform as is noted in this patient. 2. A few additional mild nonspecific abnormalities are noted as described above and these are all likely arthritic or traumatic in etiology. None of these abnormalities is strongly suspicious for metastatic disease. Assessment/Plan Assessment: Assessment- 1. Pulmonary embolism, acute versus subacute 2. Small left pleural effusion, possibly malignant pleural effusion 3. History of bladder cancer 4. Hypertension 5. Hyperlipidemia Plan- Await CAT scan of the abdomen and pelvis today Switched from IV heparin to Lovenox yesterday Pending echocardiogram to rule out right heart strain Oncology and pulmonology recommendations appreciated Continue all home meds For pulmonary, we held off on the thoracentesis; CT surgery may consider putting in a pigtail catheter in given the fact that he recently had a thoracentesis 2 weeks ago and again has a mild to moderate right-sided malignant pleural effusion which has reaccumulated He will be pursuing chemotherapy as an outpatient Problem List: 1. Malignant pleural effusion 2. Dyspnea 3. Pulmonary embolism 4. Pleural effusion 5. Hyperlipidemia 6. Hypertension 7. Bladder cancer Pain Ratin Pain Location: none Pain Goal: Remain pain free Pain Plan: per emr Tomorrow's Labs & Rationales: per emr JULISA MOCTEZUMA MD 09/24/16 1702: Attending MD Review Statement Attending Statement Attending MD Statement: examined this patient, discuss w/resident/PA/RN EMBEDDED, agreed w/resident/PA/RN EMBEDDED, discussed with family, reviewed EMR data (avail), discussed with nursing, reviewed images, amended to note Attending Assessment/Plan: The patient was seen and discussed with house staff. Agree with the plan of care as outlined. OK to discharge to home on anticoagulation. Follow-up with oncology for chemotherapy.
[2016-09-24 08:01] VITALS: BP 130/80
--- NOTE | 2016-09-24 08:37 | PN- Pulmonary ---
See Addendum EILEEN VASQUES,[facility] 09/24/16 0836: Subjective HPI/Critical Care Issues: Follow-up: subsegmental right upper lobe pulmonary embolism (subacute). Patient reported feeling "good", shortness of breath impoved, he is saturating well in room air 94%. denied any cough, chest pain or chest tightness, palpitation, lightheadedness, visual disturbance. Vital signs are stable; heart rate 67, blood pressure 130/80, temperature 97.7MAXIMUM TEMPERATURE 98.5 IV heparin was switched overnight to [id number] mg daily. Patient is scheduled for CTA abdomen and pelvis today for malignancy staging. Echocardiogram still pending Objective Current Medications: Current Medications Sig/Jordon Start time Last Medication Dose Route Stop Time Status Admin Acetaminophen 650 MG Q4P PRN 09/23 2145 CAN PO Acetaminophen 650 MG Q6P PRN 09/23 0315 AC PO Amlodipine Besylate 5 MG DAILY 09/23 1000 AC 09/23 PO 1033 Atorvastatin Calcium 10 MG DAILY 09/23 1000 AC 09/23 PO 1033 Enoxaparin Sodium 150 MG Q24H 09/23 1500 AC 09/23 SC 1818 Heparin Sodium 25,000 UNIT Q24H 09/23 0015 DC 09/23 (Porcine) IV 0043 Sodium Chloride 500 ML Ibuprofen 600 MG Q6P PRN 09/23 0315 AC PO Lisinopril 40 MG DAILY 09/23 1000 AC 09/23 PO 1042 Nebivolol 5 MG DAILY 09/23 1000 AC 09/23 PO 1033 Oxycodone HCl 10 MG Q6P PRN 09/23 0315 AC PO Patient Medication 1 ED .STK-MED ONE 09/23 1419 DC Teaching ED 09/23 1420 Sodium Chloride 1,000 ML Q13H 09/23 0500 DC 09/23 IV 0541 Vital Signs & I&O Last 24 Hrs of Vitals and I&O: Vital Signs Date Time Temp Pulse Resp B/P Pulse O2 O2 Flow FiO2 Ox Delivery Rate 09/24 0801 97.7 67 20 130/80 94 Room Air 09/24 0000 94 Room Air 09/23 2353 97.7 59 20 110/70 94 Room Air 09/23 1421 98.5 62 18 130/62 90 Room Air 09/23 1042 67 130/68 09/23 1033 67 130/68 09/23 1033 67 130/68 09/23 1000 92 Room Air Intake & Output 09/24 1600 09/24 0800 09/24 0000 Intake Total 350 800 Output Total Balance 350 800 Intake, Oral 350 800 Exam General Appearance: well developed/nourished, no apparent distress, alert, comfortable Head: atraumatic, normal appearance Ears, Nose, Throat: normal ENT inspection Neck: normal inspection, supple, full range of motion Respiratory: normal breath sounds, chest non-tender, no respiratory distress, lungs clear Cardiovascular: regular rate/rhythm Abdomen: normal bowel sounds, soft, non-tender, distention, hepatomegaly, spleenomegaly Back: normal inspection, normal range of motion, no vertebral tenderness Extremities: normal inspection, normal capillary refill, normal range of motion, bilateral lower extremity +1 pedal edema Neurologic/Psychiatric: no motor/sensory deficits, awake, alert, oriented x 3, normal mood/affect Cranial Nerves: normal hearing, normal speech, PERRL Impression/Plan Impression/Plan Impression/Plan: Mr. Tapia is 75 year old male with past medical history of hypertension, hyperlipidemia, spinal stenosis, bladder cancer s/p resection with reoccurrence and metastasis 2016, schwannoma, residual deficit of facial palsy, right eye partial blindness, right side deafness, chronic bilateral lower extremity edema was admitted on 09/23/16 with chief complaint of progressive shortness of breath. Impression/Plan: 1. Right greater than left pleural effusion, previously tapped and found to be malignant. 2. New right upper lobe pulmonary embolism. 3. Metastatic bladder cancer. Recommendations: * IV heparin was switched to Lovenox 150 mg once daily * Continue anticoagulation * Patient has recent history of thoracocentesis 2 weeks ago (malignant effusion) , with the reaccumulation of small to moderate right pleural effusion and small left pleural effusion * Discussion for Pleurx catheter placement (tunneled) versus pigtail catheter ( non-tunneled) * We will discuss the patient's case with CT surgery and primary team for final decision * O2 to maintain saturations greater than 92%. * Continue all supportive care. DARCI VASQUES,Anand [facility] 09/24/16 1353: Impression/Plan Impression/Plan Recommendations: Addendum: I have personally seen and examined the patient and agree with the resident's assessment and plan as above. I have discussed the case with CT surgery. At this time, but does not appear to be a significant amount of fluid free flowing in the chest to warrant a Pleurx catheter. The patient will be started on outpatient chemotherapy soon after discharge. Our plan is to monitor the level of the fluid with serial chest x-rays as an outpatient. If the effusion continues to increase, and outpatient Pleurx catheter will be placed. Because the patient is starting chemotherapy, there is an opportunity for the fluid to improve with treatment. We'll continue to monitor the patient conservatively for now.
--- NOTE | 2016-09-24 09:46 | PN- Oncology ---
Subjective Subjective: He feels well and breathing is stable. He denies any worsening of his shortness of breath. Bone scan was done yesterday. He has no fever or chills. He denies any issues with nausea or vomiting. Review of Systems: Constitutional: Denies: chills, fever, unexplained weight loss. EENTM: Denies: blurred vision, double vision. Cardiovascular: Reports: peripheral edema. Denies: chest pain, palpitations, syncope. Respiratory: Reports: short of breath. Denies: cough, hemoptysis, sputum production, wheezing. GI: Reports: bloating. Denies: constipation, diarrhea, melena, nausea, bloody stool, changes in stool, vomiting. Genitourinary: Denies: hematuria. Neurological/Psychological: Denies: confusion. Hematologic/Endocrine: Denies: bruising, bleeding. All Other Systems: Reviewed and Negative Objective Vital Signs and I&Os Vital Signs Date Time Temp Pulse Resp B/P Pulse O2 O2 Flow FiO2 Ox Delivery Rate 09/24 0801 97.7 67 20 130/80 94 Room Air 09/24 0000 94 Room Air 09/23 2353 97.7 59 20 110/70 94 Room Air 09/23 1421 98.5 62 18 130/62 90 Room Air 09/23 1042 67 130/68 09/23 1033 67 130/68 09/23 1033 67 130/68 09/23 1000 92 Room Air Intake & Output 09/24 1600 09/24 0800 09/24 0000 09/23 1600 09/23 0800 09/23 0000 Intake Total 350 800 760 109 0 Output Total 150 300 Balance 350 800 610 -191 0 Intake, IV 260 109 Intake, Oral 350 800 500 0 Number 0 Bowel Movements Output, Urine 150 300 Patient 101.151 kg 99.79 kg Weight Physical Exam: General Appearance: well developed/nourished, no apparent distress, alert, awake , comfortable Head: atraumatic Eyes: Right: other (decrease vision on right eye). Bilateral: normal appearance , PERRL. Ears, Nose, Throat: normal pharynx, decreased hearing on the right ear Respiratory: normal breath sounds, chest non-tender, quiet respiration, decreased breath sounds (R worse than left), crackles Cardiovascular: regular rate/rhythm, systolic murmur Gastrointestinal: normal bowel sounds, soft, non-tender, distention Back: normal inspection Extremities: no edema Neurologic/Psych: alert, oriented x 3, decreased hearing on right, decrease vision on right Lymphatic: no adenopathy Current Medications: Current Medications Sig/Jordon Start time Last Medication Dose Route Stop Time Status Admin Acetaminophen 650 MG Q4P PRN 09/23 2145 CAN PO Acetaminophen 650 MG Q6P PRN 09/23 0315 AC PO Amlodipine Besylate 5 MG DAILY 09/23 1000 AC 09/23 PO 1033 Atorvastatin Calcium 10 MG DAILY 09/23 1000 AC 09/23 PO 1033 Enoxaparin Sodium 150 MG Q24H 09/23 1500 AC 09/23 SC 1818 Heparin Sodium 25,000 UNIT Q24H 09/23 0015 DC 09/23 (Porcine) IV 0043 Sodium Chloride 500 ML Ibuprofen 600 MG Q6P PRN 09/23 0315 AC PO Lisinopril 40 MG DAILY 09/23 1000 AC 09/23 PO 1042 Nebivolol 5 MG DAILY 09/23 1000 AC 09/23 PO 1033 Oxycodone HCl 10 MG Q6P PRN 09/23 0315 AC PO Patient Medication 1 ED .STK-MED ONE 09/23 1419 MO Teaching ED 09/23 1420 Sodium Chloride 1,000 ML Q13H 09/23 0500 DC 09/23 IV 0541 Results Last 24 Hours of Lab Results: Laboratory Tests 09/23 09/23 09/23 1205 1200 1200 Chemistry Troponin I (<0.11 ng/ml) 0.02 Coagulation APTT (25 - 37 SEC) 76 H Hematology CBC w Diff NO MAN DIFF REQ WBC (4.8 - 10.8 /CUMM) 9.6 RBC (4.70 - 6.10 /CUMM) 5.65 Hgb (14.0 - 18.0 G/DL) 15.6 Hct (42 - 52 %) 47.8 MCV (80.0 - 94.0 FL) 84.5 MCH (27.0 - 31.0 PG) 27.6 RDW (11.5 - 14.5 %) 14.4 Plt Count (130 - 400 /CUMM) 236 MPV (7.4 - 10.4 FL) 8.6 Gran % (42.2 - 75.2 %) 81.4 H Lymphocytes % (20.5 - 51.1 %) 10.4 L Monocytes % (1.7 - 9.3 %) 6.5 Eosinophils % (0 - 5 %) 1.4 Basophils % (0.0 - 2.0 %) 0.3 Absolute Granulocytes (1.4 - 6.5 /CUMM) 7.8 H Absolute Lymphocytes (1.2 - 3.4 /CUMM) 1.0 L Absolute Monocytes (0.10 - 0.60 /CUMM) 0.6 Absolute Eosinophils (0.0 - 0.7 /CUMM) 0.1 Absolute Basophils (0.0 - 0.2 /CUMM) 0 PUBS MCHC (33.0 - 37.0 G/DL) 32.7 L Other Body Source Fluid WBC Cancelled Fld Total RBCs Counted Cancelled Fluid Total Protein Cancelled Fluid Albumin Cancelled Fluid LDH Cancelled Fluid Cholesterol Cancelled Recent Imaging Studies: Bone scan 09/23/2016: 1. Diffuse bone agent uptake in the myocardium is nonspecific, but is most commonly due to cardiac amyloidosis. Ischemic heart disease and ventricular aneurysms can also be responsible for myocardial uptake of bone agent, but these are usually not is uniform as is noted in this patient. 2. A few additional mild nonspecific abnormalities are noted as described above and these are all likely arthritic or traumatic in etiology. None of these abnormalities is strongly suspicious for metastatic disease. Assessment/Plan Assessment/Recommendations: Mr. Tapia is a 75-year-old male with history of bladder cancer s/p resection with recurrence 2015 and treated with intravesicular mitomycin, HTN, CKD, shwannoma s/p resection with residual neuro deficit who presents to the hospital with worsening shortness of breath. On admission, he was noted to have subsegmental PE. Pleural effusion for last admission was positive for malignant cells consistent with urothelial origin. Patient is now noted to have metastatic urothelial cancer. Bone scan has been negative for disease. CT of the abdomen and pelvis is pending. Echocardiogram is pending. Pulmonary is seeing patient and thoracic surgery may plan for PleuRx catheter given recurrent effusion in the last 2 weeks. In addition, he has a subsegmental PE in the RUL. He is now on enoxaparin for therapy. PE is likely malignancy related. Given his metastatic disease, I will see him as outpatient to discuss options. Recommendations: 1. Follow up pulmonary recommendation 2. Continue enoxaparin 3. Follow up CT of abdomen/pelvis 4. Follow up Echocardiogram 5. Follow up as outpatient for discussion of therapy Please call [phone] with any questions or concerns Problem List: 1. Malignant pleural effusion 2. Pulmonary embolism 3. Bladder cancer
--- NOTE | 2016-09-24 11:11 | CT SCAN REPORT ---
EXAMINATION: CT ABDOMEN AND PELVIS WITH CONTRAST CLINICAL INFORMATION: 75-year-old male with bladder carcinoma. Evaluate for abdominal metastases. COMPARISON: CT abdomen and pelvis from 10/09/2013. CT chest from 09/22/2016. TECHNIQUE: Multidetector volumetric imaging was performed of the abdomen and pelvis before and after the IV administration of 95 mL of Omnipaque 320 intravenous contrast. Sagittal and coronal reformatted images were obtained on the technologist's workstation. DLP: 931 mGy-cm FINDINGS: LUNG BASES: [id number] pleural effusions cause compressive atelectasis of each lower lobe. No evidence of a pleural-based nodule or pleural thickening. The mitral valve annulus is calcified. No pericardial effusion. LIVER, GALLBLADDER, AND BILIARY TREE: Liver has normal size and contour. There is a nonspecific 0.7 cm hypodense focus within hepatic segment VII (image 17, series 2). Otherwise, liver is unremarkable. Gallbladder is physiologically distended and without evidence of cholelithiasis. PANCREAS: Unremarkable. SPLEEN: Unremarkable. ADRENAL GLANDS: Unremarkable. KIDNEYS AND URETERS: There is chronic, mild bilateral renal cortical atrophy. Multiple bilateral peripelvic renal cysts. Simple cortical cyst of the mid left kidney measures up to 2 cm maximum dimension. No solid renal mass. Renal vascular calcifications are noted. There is no convincing nephrolithiasis. No hydroureteronephrosis. BLADDER: The wall of the bladder dome is abnormal thick (measures up to 1.8 cm thick), compatible with history of urothelial carcinoma of the bladder. There is heterogeneous enhancement of the thickened bladder wall and the outer surface of the bladder wall is irregular, suggestive of tumor invasion through the muscle layer and into the adjacent perivesical fat (sagittal reformatted images 76-80 of 147). GASTROINTESTINAL TRACT: Stomach is unremarkable. Loops of bowel are normal in caliber. There are diverticula of the sigmoid colon without diverticulitis. Small amount of ascitic fluid is present within the abdomen and pelvis. There are no focal peritoneal or omental nodules. ABDOMINAL WALL: Subcutaneous tissue edema is present within the abdominal wall. Small area of gas within the subcutaneous tissue of the right abdominal wall is likely related to recent medication injection. LYMPH NODES: Within the upper abdomen, a aortocaval lymph node at the level of the renal vessels is at the upper range of normal size and measures 1 cm AP (image 29, series 2). This lymph node was 0.8 cm AP on 10/09/2013. A nonspecific, mild enlarged portocaval lymph node is 1.3 cm AP, compared to 0.8 cm on 10/09/2013 (image 27, series 2). Mesenteric lymph nodes have increased in size, largest measuring up to 0.9 cm short axis dimension. There are multiple iliac chain lymph nodes that measure less than 1 cm in short axis dimension but have increased in size compared to 10/09/2013. A distal left external iliac lymph node is 1 cm short axis (image 71, series 2). Inguinal lymph nodes have increased in size compared to 10/09/2013, as well, largest measuring 1.4 cm short axis dimension. VASCULAR: Atherosclerotic calcification of the abdominal aorta and iliac arteries without aneurysm. PELVIC VISCERA: Prostate gland is normal in size. Small amount of ascitic fluid is present within the pelvis. OSSEOUS STRUCTURES: No suspicious osseous lesions. There is a stable bone island of the right posterior elements of L3. There is an old, stable lipoma along the anterior surface of the distal left iliac is muscle. IMPRESSION: 1. Findings consistent with urothelial carcinoma of the bladder dome. There tumor at the bladder dome appears to extend through the muscle layer and into the adjacent perivesical fat. 2. Although lymph nodes in the abdomen, pelvis and inguinal regions have increased in size compared to 10/09/2013, this mild lymphadenopathy is nonspecific. 3. Indeterminate 0.7 cm hypodense focus within hepatic segment VII. It is uncertain whether this represents a metastasis. 4. Anasarca as manifest by pleural effusions, small volume of ascites, and abdominal wall edema.
--- NOTE | 2016-09-24 14:10 | Patient Discharge Instructions ---
Discharge Instructions General Discharge Information You were seen/treated for: PULMONARY EMBOLISM You had these procedures: NONE Special Instructions: F/U WITH YOUR PCP, DR. OVALLE AND DR. ESQUEDA WITHIN 1 WEEK OF DISCHARGE Acute Coronary Syndrome Inclusion Criteria At DC or during hospital stay patient has or had the following: ACS DIAGNOSIS No Discharge Core Measures Meds if any: Prescribed or Continued at Discharge Meds if any: NOT Prescribed or Continued at Discharge Congestive Heart Failure Inclusion Criteria At DC or during hospital stay patient has or had the following: CHF DIAGNOSIS No Discharge Core Measures Meds if any: Prescribed or Continued at Discharge Meds if any: NOT Prescribed or Continued at Discharge Cerebrovascular accident Inclusion Criteria At DC or during hospital stay patient has or had the following: CVA/TIA Diagnosis No Discharge Core Measures Meds if any: Prescribed or Continued at Discharge Meds if any: NOT Prescribed or Continued at Discharge Venous thromboembolism Inclusion Criteria VTE Diagnosis Yes VTE Type Pulmonary Embolism VTE Confirmed by (Test) CT CHEST ANGIOGRAM Discharge Core Measures - Per Current guidelines, there needs to be overlap - treatment for the first 5 days of Warfarin therapy. - If discharged on Warfarin prior to 5 days of - overlap therapy, the patient will need to be - assessed for post discharge needs including - *Post discharge parental anticoagulation - *Warfarin and/or parental anticoagulation education - *Follow up date to check INR post discharge At least 5 days overlap therapy as Inpatient No Why was Parental Med stopped Other Anticoagulant given Meds if any: Prescribed or Continued at Discharge Warfarin No Overlap Therapy No Note: Overlap Therapy is Warfarin and Anticoagulant Meds if any: NOT Prescribed or Continued at Discharge Comment STARTED ON NOAC
--- NOTE | 2016-09-24 14:13 | Discharge Summary ---
Visit Information Visit Dates Admission Date: 09/23/16 Discharge Date: 09/24/16 Hospital Course Course Attending Physician: JULISA MOCTEZUMA MD Primary Care Physician: YUMIKO TAYLOR DO Hospital Course: This is a 75-year-old gentleman with a history significant for hypertension, hyperlipidemia, urothelial cancer being managed with mitomycin instillations, recent admission at [facility] 2 weeks prior to admission for shortness of breath status post thoracentesis which showed malignant pleural effusions; presented with a chief complaint of dyspnea and wheezing. On admission to the emergency room, a CT angiogram of the chest showed a subsegmental right upper lobe pulmonary embolism. Patient was admitted and treated for the same. Labs on admission were within normal limits- Radiology- Chest x-ray IMPRESSION: 1. Bibasilar atelectasis. 2. Small bilateral pleural effusions. CT angiogram of the chest IMPRESSION: 1. Subsegmental right upper lobe pulmonary embolus, favored to be subacute. 2. Increased small to moderate right and small left pleural effusions. Adjacent dependent lower lobe atelectasis. 3. Small volume of upper abdominal ascites. CT abdomen and pelvis with IV contrast IMPRESSION: 1. Findings consistent with urothelial carcinoma of the bladder dome. There tumor at the bladder dome appears to extend through the muscle layer and into the adjacent perivesical fat. 2. Although lymph nodes in the abdomen, pelvis and inguinal regions have increased in size compared to 10/09/2013, this mild lymphadenopathy is nonspecific. 3. Indeterminate 0.7 cm hypodense focus within hepatic segment VII. It is uncertain whether this represents a metastasis. 4. Anasarca as manifest by pleural effusions, small volume of ascites, and abdominal wall edema. Nuclear bone scan IMPRESSION: 1. Diffuse bone agent uptake in the myocardium is nonspecific, but is most commonly due to cardiac amyloidosis. Ischemic heart disease and ventricular aneurysms can also be responsible for myocardial uptake of bone agent, but these are usually not is uniform as is noted in this patient. 2. A few additional mild nonspecific abnormalities are noted as described above and these are all likely arthritic or traumatic in etiology. None of these abnormalities is strongly suspicious for metastatic disease. Patient was admitted to the general medicine floor treated for the following conditions 1. Pulmonary embolism- thought to be subacute. Most likely secondary to his ongoing malignancy. For this the patient was started on heparin drip, subsequently he was transferred to subcutaneous Lovenox; he will be discharged on by mouth Xarelto 15 mg daily for 21 days and then 20 mg daily thereafter. 2. History of bladder cancer-status post surgical intervention; his urologist is Dr. Aguayo. 2 weeks prior to admission he was admitted with shortness of breath with a new right-sided pleural effusion which was drained and was then determined to be a malignant pleural effusion. 3. Bilateral lower lobe effusion- CAT scan he had a mild to moderate-sized right-sided pleural effusion and a mild effusion on the left. Cardiothoracic surgery determined that the patient does not essentially need a thoracentesis or pigtail catheter at present; he is to undergo planned chemotherapy as an outpatient and his pleural effusions will then be readdressed. He remained hemodynamically stable and did not experience any respiratory compromise the course of the admission. 4. Hypertension- he was continued on his home dose of bystolic, amlodipine, lisinopril. 5. Hyperlipidemia- he was continued on his home dose of statin. Allergies: Coded Allergies: No Known Drug Allergies (UNKNOWN 04/08/16) Disposition Summary Disposition Principal Diagnosis: 1. Pulmonary embolism Additional Diagnosis: 1. Bladder cancer 2. HTN 3. HLD Discharge Disposition: home health services Discharge Instructions General Discharge Information Code Status: Full Code Patient's Diet: heart healthy Patient's Activity: as tolerated Follow-Up Instructions/Appts: F/U with your PCP, Dr. Mcintosh and Dr. Cole within 1 week of dicharge Medications at Discharge Discharge Medications: Continue taking these medications: Nebivolol HCl (Bystolic) 10 MG TABLET 0.5 Tablet ORAL DAILY Qty = 30 Comments: Last Taken: 09/24/16 Time: 0940 Amlodipine Besylate (Amlodipine Besylate) 5 MG TABLET 1 Tablet ORAL DAILY Qty = 30 Comments: Last Taken: 09/24/16 Time: 0936 Lisinopril (Lisinopril) 40 MG TABLET 1 Tablet ORAL DAILY Qty = 90 Comments: Last Taken:09/24/16 Time:0936 Atorvastatin Calcium (Atorvastatin Calcium) 10 MG TABLET 1 Tablet ORAL DAILY Qty = 90 Comments: Last Taken: 09/24/16 Time: 0940 Cholecalciferol (Vitamin D3) 1,000 UNIT TABLET 1 Tablet ORAL DAILY Comments: Last Taken:not taken in hospital Time: Start taking the following new medications: Rivaroxaban (Xarelto) 15 MG TABLET 1 Tablet ORAL TWICE DAILY Qty = 42 No Refills Instructions: START ON 09/25/16, LAST DOSE ON THE EVENING OF 10/15/16 Comments: Last Taken:NOT TAKEN IN HOSPITAL Time: Rivaroxaban (Xarelto) 20 MG TABLET 1 Tablet ORAL DAILY Qty = 30 Refills = 2 Instructions: START ON 10/16/16 Comments: Last Taken:NOT TAKEN IN HOSPITAL Time: Copies To: YIN VASQUES,BERTHA; CJ AGUAYO MD; VASQUEZ VASQUES,DENNY; YUMIKO TAYLOR DO, MD Review Statement Documenting Attending: JULISA MOCTEZUMA MD Other Findings: The patient was seen and discussed with house staff. Agree with the plan of care as outlined upon discharge.
[2016-09-24] MEDS ORDERED: VITAMIN D31000 UNI2 PO (14:30)
[2016-09-24] MEDS ORDERED: XARELTO20 M2 PO (14:33)
[2016-09-24] MEDS ORDERED: XARELTO15 M1 PO (14:33)
[2016-09-24 15:25] VITALS: BP 120/68
[2016-10-29] MEDS ORDERED: FLOMAX0.4 M1 PO (08:40)
[2016-10-29] MEDS ORDERED: FINASTERIDE5 M1 PO (08:40)
== END 2016-09-24 17:10 | DRG 176 ==
LOC: ENRESERVTM → ENRESERVDT → ERH 19:26 → 2NA 09-23 00:54 → ERHI 09-23 00:54 → 2NA 09-23 02:08
PROVIDERS: Emergency Medicine; Internal Medicine; Pediatrics; ADMIT Internal Medicine
DX: I26.99 Other pulmonary embolism without acute cor pulmonale (principal); J91.0 Malignant pleural effusion; R18.8 Other ascites; J44.9 Chronic obstructive pulmonary disease, unspecified; C67.9 Malignant neoplasm of bladder, unspecified; D36.10 Benign neoplasm of peripheral nerves and autonomic nervous system, unspecified; Z87.891 Personal history of nicotine dependence; E78.5 Hyperlipidemia, unspecified; M48.00 Spinal stenosis, site unspecified; I12.9 Hypertensive chronic kidney disease with stage 1 through stage 4 chronic kidney disease, or unspecified chronic kidney disease; N18.9 Chronic kidney disease, unspecified
CPT/HCPCS: 2NASP; 87075; 36415; 74177; 82436; 87040; 93005; 93010; 96374; 99291; A9561; J1644; J1650

== ENCOUNTER → 2016-10-30 | Day surgery (SDC) | payer OTHER, MEDICARE ==
[~2016-10-30] VITALS: Ht 170.2 cm; Wt 95.3 kg
[~2016-10-30] MED LIST changes: +FINASTERIDE5 M1 PO; +FLOMAX0.4 M1 PO; +VITAMIN D2000 UNI1 PO; +VITAMIN D31000 UNI2 PO; +XARELTO15 M1 PO; +XARELTO20 M2 PO
--- NOTE | 2016-10-30 09:11 | Operative Report ---
Operative/Inv Procedure Report Surgery Date: 10/30/16 Name of Procedure: Right subclavian portacath placement with ultrasound and fluoroscopic guidance. Pre-Operative Diagnosis: Bladder Cancer Post-Operative Diagnosis: same Estimated Blood Loss: scant Surgeon/Inletter: ALMA VASQUES,RENY Bond Anesthesia: local monitored anesthesi Implants: power port Operative/Procedure Note Note: After consent he is brought to the operating room and laid supine. Sedation was obtained and his right neck and chest were prepped and draped. The skin in the upper right chest was infiltrated local anesthesia. The subclavian vein was then percutaneously accessed using ultrasound guidance. The wire was placed through and fluoroscopic imaging showed the wire coursing down into the right atrium. I then created a pocket inferiorly to accept the port. This was done by making an incision sharply and subcutaneous tissues tissues dissected with cautery. The pocket was created bluntly. The catheter and port were placed into the pocket and tunneled to the separate incision where the wire was emanating from his skin. We measured the catheter to 20 cm under fluoroscopy. Dilator was placed over the wire under fluoroscopy. The catheter was placed through the sheath and then the Sheath removed in a peel-away fashion. Final fluoroscopic images showed the catheter tip at the SVC/atrial junction. The port was then flushed with concentrated heparin. It was anchored to the deep subcutaneous tissues with 0 Vicryl. The incision was then closed in layers of 3 -0 and 4-0 Vicryl. Steri-Strips and sterile dressing applied. Sponge and needle counts are correct CC: YIN VASQUES,BERTHA; YUMIKO TAYLOR DO
--- NOTE | 2016-10-30 10:34 | RADIOLOGY REPORT ---
EXAMINATION: XR CHEST CLINICAL INFORMATION: Status post right-sided Port-A-Cath insertion. COMPARISON: Chest done on 10/23/2016. TECHNIQUE: Portable 80 degrees upright frontal view of the chest. FINDINGS: Interval placement of a right-sided Port-A-Cath is noted, the tip of the catheter is seen projecting at the cavoatrial junction. There is no definite evidence of any pneumothorax identified. Evaluation is technically limited due to overexposure. There are persistent bilateral small pleural effusions present, similar to prior study dated 10/23/2016 with low lung volume and nonspecific airspace disease at right lung base. IMPRESSION: Interval placement of a right-sided Port-A-Cath with its tip seen projecting at the cavoatrial junction. No definite evidence of any pneumothorax is noted however, evaluation is technically limited due to overexposure. No other significant change since 10/23/2016.
--- NOTE | 2016-10-30 15:13 | RADIOLOGY REPORT ---
EXAMINATION:\H\ \N\XR CHEST CLINICAL INFORMATION: Right-sided Port-A-Cath. COMPARISON: Chest done on 10/23/2016. TECHNIQUE: C-arm fluoroscopy assistance is provided at the time of the right-sided Port-A-Cath placement. FINDINGS: Single spot radiograph obtained at the time of the procedure shows a partially included right-sided radiopaque catheter with its tip seen projecting at the level of the distal superior vena cava and a radiopaque marker projecting at the level of the suprasternal region. FLUOROSCOPY TIME: 46 seconds. IMPRESSION: C-arm fluoroscopy assistance is provided at the time of the right-sided Port-A-Cath placement. Full procedural details will be dictated by Dr. Latif.
== END ==
LOC: STS 03:57
DX: C67.9 Malignant neoplasm of bladder, unspecified (principal); I10 Essential (primary) hypertension; E78.5 Hyperlipidemia, unspecified; J44.9 Chronic obstructive pulmonary disease, unspecified; Z86.711 Personal history of pulmonary embolism; Z79.01 Long term (current) use of anticoagulants
CPT/HCPCS: C1788; J0131; J0690; J2250

== ENCOUNTER 2017-01-13 11:36 | Emergency (ER) | payer OTHER, MEDICARE ==
[~2017-01-13] VITALS: Ht 170.2 cm; Wt 95.3 kg
[2017-01-13] MEDS ORDERED: XARELTO15 M1 PO (12:32)
--- NOTE | 2017-01-13 12:39 | ED GENERAL ADULT ---
History of Present Illness General Chief Complaint: Shoulder Injury Stated Complaint: FALL L SHOULDER PAIN Source: patient Exam Limitations: no limitations Allergies Coded Allergies: No Known Drug Allergies (UNKNOWN 04/08/16) Reconcile Medications Amlodipine Besylate 5 MG TABLET 1 TAB PO DAILY HTN (Reported) Atorvastatin Calcium 10 MG TABLET 1 TAB PO DAILY CHOLESTEROL (Reported) Cholecalciferol (Vitamin D3) 1,000 UNIT TABLET 1 TAB PO DAILY SUPPLEMENT ( Reported) Finasteride 5 MG TABLET 1 TAB PO DAILY BPH (Reported) Lisinopril 40 MG TABLET 1 TAB PO DAILY HTN (Reported) Nebivolol HCl (Bystolic) 10 MG TABLET 0.5 TAB PO DAILY HTN (Reported) Rivaroxaban (Xarelto) 15 MG TABLET 1 TAB PO DAILY BLOOD THINNER (Reported) Tamsulosin HCl (Flomax) 0.4 MG CAP.ER.24H 1 CAP PO DAILY BPH (Reported) Triage Note: PT FELL LAST EVENING AND STATES TODAY HE IS HAVING LEFT SHOULDER PAIN. PT REPORTS THE PAIN IS BAD WHEN HE TRIES TO LIFT HIS ARM UP. PT DENIES HITTING HIS HEAD -LOC Triage Nurses Notes Reviewed? yes HPI: 76-year-old male with a history of metastatic bladder carcinoma, hypertension, hyperlipidemia presenting status post mechanical fall last night. Reports walking up a flight of stairs in his house and missed a step, fell onto his left side on a carpeted area from a height of 2 steps. Denies head injury or loss of consciousness. Reports feeling fine last night but then awoke with left shoulder pain this morning. Denies numbness or paresthesias. (ABRAHAM PANIAGUA,PEDRO PABLO) Vital Signs & Intake/Output Vital Signs & Intake/Output Vital Signs Date Time Temp Pulse Resp B/P B/P Pulse O2 O2 Flow FiO2 Mean Ox Delivery Rate 01/13 1320 98.3 68 18 114/70 01/13 1154 Room Air 01/13 1146 97.4 61 16 121/67 95 Room Air Past History Travel History Traveled to [place] past 21 day No Medical History Any Pertinent Medical History? 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 No (PEDRO PABLO ROSARIO PA-C) Review of Systems Review of Systems Constitutional: Reports: no symptoms. Respiratory: Reports: no symptoms. Cardiovascular: Reports: no symptoms. GI: Reports: no symptoms. Musculoskeletal: Reports: joint pain (left shoulder). Denies: back pain, neck pain. Skin: Reports: no symptoms. Neurological/Psychological: Reports: no symptoms. (PEDRO PABLO ROSARIO PA-C) Physical Exam Physical Exam General Appearance: well developed/nourished, no apparent distress Head: atraumatic Respiratory: normal breath sounds, chest non-tender, lungs clear Cardiovascular: regular rate/rhythm, normal peripheral pulses Gastrointestinal: normal bowel sounds, soft, non-tender, there is trace ecchymosis to left lower abdomen right, however abdomen is soft and nontender Extremities: normal inspection, normal range of motion, on exam of the left shoulder there is trace ecchymosis, tenderness to palpation directly over ecchymosis, unrestricted range of motion, normal sensation, motor strength 5 out 5, palpable distal pulses Neurologic/Psych: no motor/sensory deficits, alert, oriented x 3, normal gait, outreach worker II-XII nml as tested Skin: intact, warm/dry Core Measures ACS in differential dx? No CVA/TIA Diagnosis: No Severe Sepsis Present: No Septic Shock Present: No (PEDRO PABLO ROSARIO PA-C) Progress Differential Diagnoses I considered the following diagnoses in my evaluation of the patient: [Shoulder contusion versus fracture versus dislocation. Given the ecchymosis to the left lower abdomen intra-abdominal injury was also considered but low suspicion as abdomen is soft and nontender.] Plan of Care: Current Medications Sig/Jordon Start time Last Medication Dose Stop Time Status Admin Acetaminophen 650 MG ONCE ONE 01/13 1315 AC (Tylenol) 01/13 1316 X-ray negative for fracture or dislocation. Patient unable to take NSAIDs as he is on anticoagulation. Instructed to use Tylenol as needed for pain. (ABRAHAM PANIAGUA,PEDRO PABLO) Initial ED EKG: none (PEDRO PABLO ROSARIO PA-C) Departure Departure Disposition: HOME OR SELF CARE Condition: Stable Clinical Impression Primary Impression: Left shoulder pain Referrals: YUMIKO TAYLOR DO (PCP/Family) Additional Instructions: Use Tylenol as needed for pain. Apply ice to sore areas 2-3 times daily. Follow-up with her primary care provider for reevaluation. Return to the ED for any new or worsening symptoms. Departure Forms: Customer Survey General Discharge Information (PEDRO PABLO ROSARIO PA-C) PA/MARKETING PROGRAM MANAGER Co-Sign Statement Statement: ED Attending supervision documentation- [x] I saw and evaluated the patient. I have also reviewed all the pertinent lab results and diagnostic results. I agree with the findings and the plan of care as documented in the PA's/MARKETING PROGRAM MANAGER's documentation. [] I have reviewed the ED Record and agree with the PA's/MARKETING PROGRAM MANAGER's documentation. [] Additions or exceptions (if any) to the PAs/MARKETING PROGRAM MANAGER's note and plan are summarized below: [] (RYLEY VASQUES,SHERRY Pruett) Critical Care Note Critical Care Note Critical Care Time: non-applicable (PEDRO PABLO ROSARIO PA-C)
--- NOTE | 2017-01-13 12:41 | RADIOLOGY REPORT ---
EXAMINATION: XR SHOULDER, LEFT CLINICAL INFORMATION: Status post fall COMPARISON: None TECHNIQUE: AP external rotation, Grashey, scapular Y, and axillary views of the left shoulder. FINDINGS: Normal bony mineralization. No evidence of acute fracture or dislocation. Mild degenerative changes left acromioclavicular joint and to a lesser extent inferior left glenohumeral joints. Visualized left ribs are intact. Tiny hyperdensity noted in the overlapping soft tissues of the left upper arm and left forearm. IMPRESSION: No acute osseous modality. Degenerative changes. Nonspecific focal hyperdensity noted in the soft tissues on axillary view.
[2017-01-13 13:20] VITALS: BP 114/70
== END 2017-01-13 13:24 ==
LOC: ERH 11:36
DX: M25.512 Pain in left shoulder (principal)
CPT/HCPCS: 73030-LT

== ENCOUNTER 2018-02-05 19:40 | Emergency (ER) | payer OTHER, MEDICARE ==
[~2018-02-05] VITALS: Ht 170.2 cm; Wt 97.5 kg
--- NOTE | 2018-02-05 20:51 | ED GI/GU/ABDOMINAL COMPLAINT ---
History of Present Illness General Chief Complaint: Abdominal Pain/Flank Pain Stated Complaint: SIB FOR STOMACH ISSUES Source: patient Exam Limitations: no limitations Vital Signs & Intake/Output Vital Signs & Intake/Output Vital Signs Date Time Temp Pulse Resp B/P B/P Pulse O2 O2 Flow FiO2 Mean Ox Delivery Rate 02/06 0042 98.1 54 18 157/73 95 02/05 2234 98.3 53 18 147/65 96 Room Air 02/05 2007 96.0 53 20 128/73 98 Room Air ED Intake and Output 02/06 0000 02/05 1200 Intake Total 0 Output Total Balance 0 Intake, Oral 0 Patient 215 lb Weight Weight Reported by Patient Measurement Method Allergies Coded Allergies: No Known Drug Allergies (UNKNOWN 04/08/16) Reconcile Medications Amlodipine Besylate 5 MG TABLET 1 TAB PO DAILY HTN (Reported) Atorvastatin Calcium 10 MG TABLET 1 TAB PO DAILY CHOLESTEROL (Reported) Cholecalciferol (Vitamin D3) 1,000 UNIT TABLET 1 TAB PO DAILY SUPPLEMENT ( Reported) Finasteride 5 MG TABLET 1 TAB PO DAILY BPH (Reported) Lisinopril 40 MG TABLET 1 TAB PO DAILY HTN (Reported) Nebivolol HCl (Bystolic) 10 MG TABLET 0.5 TAB PO DAILY HTN (Reported) Rivaroxaban (Xarelto) 15 MG TABLET 1 TAB PO DAILY BLOOD THINNER (Reported) Tamsulosin HCl (Flomax) 0.4 MG CAP.ER.24H 1 CAP PO DAILY BPH (Reported) Triage Note: PT HERE WITH REPORTS OF UPPER LEFT QUAD PAIN WHN "I PUSH ON IT", X 1 WEEK. PT REPORTS HAVING NORMAL BM TODAY. DENIES N/V/D. PT STATES APPETITE IS GOOD. Triage Nurses Notes Reviewed? yes Duration: intermittent Timing: recent history Severity Numbers: 3 Location: left upper quadrant Radiation: no radiation HPI: Patient is a 77-year-old male with a past medical history of hypertension and hyperlipidemia, pulmonary embolism currently on XARELTO, urethral cancer it was his oncologist Dr. Mayfield last chemotherapy was approximately 6 month ago and known symptoms of hematuria patient's urologist Dr. Aguayo who presents to emergency with a one-week history of left upper abdominal wall pain is made worse with palpation. Patient was sent in by oncology. Patient denies any fever chills back pain cough shortness of breath or chest pain or arm pain jaw pain nausea vomiting dysuria Patient can tolerate by mouth with no change in symptoms denies any trauma (Brian Schuster) Past History Travel History Traveled to [place] past 21 day No Medical History Any Pertinent Medical History? 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 No (Brian Schuster) Review of Systems Review of Systems Constitutional: Reports: no symptoms. EENTM: Reports: no symptoms. Respiratory: Reports: no symptoms. Cardiovascular: Reports: no symptoms. GI: Reports: see HPI, abdominal pain. Genitourinary: Reports: see HPI. Musculoskeletal: Reports: no symptoms. Skin: Reports: no symptoms. Neurological/Psychological: Reports: no symptoms. Hematologic/Endocrine: Reports: no symptoms. Immunologic/Allergic: Reports: no symptoms. All Other Systems: Reviewed and Negative (Brian Schuster) Physical Exam Physical Exam General Appearance: no apparent distress, alert, obese Head: atraumatic Eyes: Bilateral: normal appearance. Ears, Nose, Throat, Mouth: moist mucous membrane Neck: normal inspection Respiratory: normal breath sounds, chest non-tender, no respiratory distress Cardiovascular: regular rate/rhythm Gastrointestinal: normal bowel sounds, soft Extremities: normal range of motion Neurologic/Psych: no motor/sensory deficits, awake Skin: intact, normal color, warm/dry Diagram Body Front & Back 1) Normal inspection left upper quadrant abdominal wall point tenderness Noted ventral hernia nontender Core Measures ACS in differential dx? No Sepsis Present: No Sepsis Focused Exam Completed? No (Brian Schuster) Progress Differential Diagnosis: AAA, AMI, appendicitis, biliary colic, bowel obstruction , colon cancer, cholecystitis, diverticulitis, gastritis, hepatitis, hernia, hemorrhoids, ischemic bowel, inflamm bowel dis, orchitis, pancreatitis, prostatitis, peptic ulcer, PUD/GERD, perforated viscous, pyelonephritis, SBO, testicular torsion, ureterolithiasis, urinary retention, urethritis, UTI/pyelo Plan of Care: Orders Procedure Date/time Status URINALYSIS 02/05 2353 Complete TROPONIN LEVEL 02/05 2121 Complete LACTIC ACID 02/05 2121 Complete COMPREHENSIVE METABOLIC PANEL 02/05 2121 Complete CBC WITHOUT DIFFERENTIAL 02/05 2121 Complete EKG 02/05 1942 Active Laboratory Tests 02/06/18 0021: Lactic Acid Cancelled 02/05/18 2350: Urinalysis LIGHT H, Urine Color YEL, Urine Clarity HAZY H, Urine pH 6.0, Ur Specific [place] >= 1.030, Urine Protein TRACE H, Urine Ketones NEG, Urine Nitrite NEG, Urine Bilirubin NEG, Urine Urobilinogen 0.2, Ur Leukocyte Esterase NEG, Ur Microscopic SEDIMENT EXAMINED, Urine RBC 25-50 H, Urine WBC 1-3 H, Ur Epithelial Cells FEW, Urine Crystals RARE UR AC, Urine Bacteria FEW H, Urine Mucus MOD H, Urine Hemoglobin LARGE H, Urine Glucose NEG 02/05/18 2210: Anion Gap 12, Estimated GFR 49 L, BUN/Creatinine Ratio 17.9, Glucose 93, Lactic Acid 0.9, Calcium 9.6, Total Bilirubin 0.3, AST 22, ALT 31, Alkaline Phosphatase 93, Troponin I 0.07, Total Protein 7.0, Albumin 4.1, Globulin 2.9, Albumin/ Globulin Ratio 1.4, CBC w Diff NO MAN DIFF REQ, RBC 5.34, MCV 84.7, MCH 27.5, MCHC 32.5 L, RDW 15.8 H, MPV 8.1, Gran % 72.1, Lymphocytes % 16.8 L, Monocytes % 9.3, Eosinophils % 1.3, Basophils % 0.5, Absolute Granulocytes 7.1 H, Absolute Lymphocytes 1.7, Absolute Monocytes 0.9 H, Absolute Eosinophils 0.1 , Absolute Basophils 0 Patient currently is resting comfortably bedside denies any change in symptoms upon eating and drinking denies any cardiovascular or respiratory complaints EKG was unremarkable and unchanged patient was offered pain medications and declines Patient's urinalysis shows consistency with the past medical history of hematuria CT scan was unremarkable for acute process as well as blood work. Discussed all results with patient patient was given CT scan findings no etiology of patient's abdominal wall pain No signs of hernia Plan discharge patient looks well no apparent distress and will comply with discharge instructions and had no questions Diagnostic Imaging: Viewed by Me: CT Scan. Radiology Impression: SEE COMMENTS Initial ED EKG: SINUS RHYTHM 57 BEATS PER MINUTE A FIRST-DEGREE HEART BLOCK Comments: PATIENT: TRISH FANG PRESENT AGE: 77 PATIENT ACCOUNT NO: [id number] : 38 LOCATION: ER ORDERING PHYSICIAN: Brian PALMA SERVICE DATE: 02/05/18 EXAM TYPE: CAT - CT ABD & PELVIS W IV CONTRAST EXAMINATION: CT ABDOMEN AND PELVIS WITH CONTRAST CLINICAL INFORMATION: Left upper quadrant pain. COMPARISON: November 11, 2017. TECHNIQUE: Contiguous axial thin section helical images of the abdomen and pelvis were performed following the administration of 95 mL of intravenous Optiray 320. The data set was reformatted in the coronal and sagittal planes and reviewed on an independent workstation. DLP: 705 mGy-cm. FINDINGS: There is a small right pleural effusion with associated atelectasis, decreased in size from prior exam. There is a tiny left pleural effusion. There is minimal atelectasis at the left lung base. The visualized portions of the heart are unremarkable. There is a small hiatal hernia. The liver is of normal size and attenuation without focal lesions nor intrahepatic biliary ductal dilation. A normal gallbladder is identified. There is no wall thickening or discernible pericholecystic fluid. The spleen, pancreas, adrenal glands are unremarkable. Both kidneys are of normal size and attenuation without hydronephrosis or nephrolithiasis. There is stable bilateral renal cortical thinning. There are stable bilateral renal cysts. Following the administration of IV contrast, prompt symmetric nephrograms are displayed. There is a small amount of ascites overlying the right lobe of the liver. There is neither mesenteric nor retroperitoneal lymphadenopathy. Within the anterior peritoneum, there is trace stranding and free fluid. No discrete omental mass lesions are demonstrable. Given the appearance of free fluid within the remainder of the abdomen and pelvis, this likely represents a small amount of fluid intercalating within the fat and omentum. There are few sigmoid diverticula without evidence of diverticulitis; otherwise, unremarkable unopacified loops of small and large bowel are identified. There is a small amount of free fluid within the pelvis. The urinary bladder is partially filled and unremarkable. There is neither pelvic nor inguinal lymphadenopathy.. There is a small hernia. Bone windows: Neither sclerotic nor lytic bone lesions are identified. IMPRESSION: Small amount of abdominal and pelvic ascites. Small right and trace left pleural effusions with associated airspace disease. Small hiatal hernia. Small degree of diverticulosis without evidence of diverticulitis. DICTATED BY: Vivek Smith MD DATE/TIME DICTATED:02/05/182329 IMMIGRATION INSPECTOR:MARCE DATE/TIME TRANSCRIBED:02/05/182329 (Brian Schuster) Departure Departure Disposition: HOME OR SELF CARE Condition: Stable Clinical Impression Primary Impression: Abdominal pain Secondary Impressions: Hematuria Referrals: Terry Mazariegos DO (PCP/Family) Additional Instructions: discussed follow-up with your primary care doctor and your oncologist as directed, if symptoms worsen or IF YOU develop any new concerning symptom return to emergency room. Begin [id number] ibuprofen or Tylenol for pain Departure Forms: Customer Survey General Discharge Information (Brian Schuster) PA/CREATIVE SERVICES MANAGER Co-Sign Statement Statement: ED Attending supervision documentation- x I saw and evaluated the patient. I have also reviewed all the pertinent lab results and diagnostic results. I agree with the findings and the plan of care as documented in the PA's/CREATIVE SERVICES MANAGER's documentation. [] I have reviewed the ED Record and agree with the PA's/CREATIVE SERVICES MANAGER's documentation. [] Additions or exceptions (if any) to the PAs/CREATIVE SERVICES MANAGER's note and plan are summarized below: [] (Vania VASQUES,Deepak)
[2018-02-05 22:24] LABS: ABSOLUTE BASOPHIL COUNT 0 /CUMM (0.0-0.2); ABSOLUTE EOSINOPHIL COUNT 0.1 /CUMM (0.0-0.7); ABSOLUTE GRANULOCYTE CT 7.1 /CUMM (1.4-6.5); ABSOLUTE LYMPH COUNT 1.7 /CUMM (1.2-3.4); ABSOLUTE MONOCYTE COUNT 0.9 /CUMM (0.10-0.60); BASOPHIL % 0.5 % (0.0-2.0); EOSINOPHIL % 1.3 % (0-5); GRANULOCYTE % 72.1 % (42.2-75.2); HEMATOCRIT 45.2 % (42-52); MEAN CORPUSCULAR HGB 27.5 PG (27.0-31.0); MEAN CORPUSCULAR HGB CONC 32.5 G/DL (33.0-37.0); MEAN CORPUSCULAR VOLUME 84.7 FL (80.0-94.0); MEAN PLATELET VOLUME 8.1 FL (7.4-10.4); PLATELET COUNT 227 /CUMM (130-400); RBC DISTRIBUTION WIDTH 15.8 % (11.5-14.5); RED BLOOD CELL CT 5.34 /CUMM (4.70-6.10); WHITE BLOOD CELL COUNT 9.9 /CUMM (4.8-10.8)
--- NOTE | 2018-02-05 23:44 | CT SCAN REPORT ---
EXAMINATION: CT ABDOMEN AND PELVIS WITH CONTRAST CLINICAL INFORMATION: Left upper quadrant pain. COMPARISON: November 11, 2017. TECHNIQUE: Contiguous axial thin section helical images of the abdomen and pelvis were performed following the administration of 95 mL of intravenous Optiray 320. The data set was reformatted in the coronal and sagittal planes and reviewed on an independent workstation. DLP: 705 mGy-cm. FINDINGS: There is a small right pleural effusion with associated atelectasis, decreased in size from prior exam. There is a tiny left pleural effusion. There is minimal atelectasis at the left lung base. The visualized portions of the heart are unremarkable. There is a small hiatal hernia. The liver is of normal size and attenuation without focal lesions nor intrahepatic biliary ductal dilation. A normal gallbladder is identified. There is no wall thickening or discernible pericholecystic fluid. The spleen, pancreas, adrenal glands are unremarkable. Both kidneys are of normal size and attenuation without hydronephrosis or nephrolithiasis. There is stable bilateral renal cortical thinning. There are stable bilateral renal cysts. Following the administration of IV contrast, prompt symmetric nephrograms are displayed. There is a small amount of ascites overlying the right lobe of the liver. There is neither mesenteric nor retroperitoneal lymphadenopathy. Within the anterior peritoneum, there is trace stranding and free fluid. No discrete omental mass lesions are demonstrable. Given the appearance of free fluid within the remainder of the abdomen and pelvis, this likely represents a small amount of fluid intercalating within the fat and omentum. There are few sigmoid diverticula without evidence of diverticulitis; otherwise, unremarkable unopacified loops of small and large bowel are identified. There is a small amount of free fluid within the pelvis. The urinary bladder is partially filled and unremarkable. There is neither pelvic nor inguinal lymphadenopathy.. There is a small hernia. Bone windows: Neither sclerotic nor lytic bone lesions are identified. IMPRESSION: Small amount of abdominal and pelvic ascites. Small right and trace left pleural effusions with associated airspace disease. Small hiatal hernia. Small degree of diverticulosis without evidence of diverticulitis.
[2018-02-06 00:42] VITALS: BP 157/73
== END 2018-02-06 00:53 ==
LOC: ERH 19:40
PROVIDERS: Physician Assistant
DX: R31.9 Hematuria, unspecified (principal); R10.12 Left upper quadrant pain
CPT/HCPCS: 74177; 81001; 93005; 93010